=== PATIENT | female | born 1950 | race Caucasian/White ===

== ENCOUNTER 2018-12-15 23:57 | Emergency (ER) | payer MEDICARE, OTHER ==
--- NOTE | 2018-12-16 02:58 | RADIOLOGY REPORT (SQ) ---
EXAM DESCRIPTION: XR KNEE 3 VIEWS COMPLETED DATE/TME: 12/16/2018 01:49 CLINICAL HISTORY: 68 years, Female, pain COMPARISON: None. NUMBER OF VIEWS: Three TECHNIQUE: Three views of the left knee LIMITATIONS: None. FINDINGS: There is no acute fracture or dislocation. There is medial compartment joint space narrowing with subchondral sclerosis. No radiopaque foreign body. No joint effusion. IMPRESSION: No acute fracture or dislocation copyright 2010 [employer]- All Rights Reserved
--- NOTE | 2018-12-16 03:08 | ER Document Report ---
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 Patient states the pain started gradually, has been worsening since onset, is a throbbing, aching, constant pain. Walking or bending the knee worsens the pain. She has tried topical lidocaine with no relief. States that she saw her primary care doctor, had an x-ray and was told that it was worsening osteoarthritis. She came to the emergency department tonight stating the pain was making it difficult for her to sleep. Nothing is otherwise new or different regarding the pain tonight versus the past 2 weeks. Has not had fever or constitutional symptoms. Has not noted any increased swelling to the area. States this is not feeling when she had a DVT in the past. No direct injury to the knee. TRAVEL OUTSIDE OF THE [place] IN LAST 30 DAYS: No - Related Data Allergies/Adverse Reactions: aspirin [From Percodan] Allergy (Verified 12/16/18 00:05) oxycodone [From Percodan] Allergy (Verified 12/16/18 00:05) propoxyphene [From Darvon] Allergy (Verified 12/16/18 00:05) smallpox vaccine,live Allergy (Verified 12/16/18 00:05) Sulfa (Sulfonamide Antibiotics) Allergy (Verified 12/16/18 00:05) Past Medical History - General Information source: Patient - Social History Smoking Status: Never Smoker Frequency of alcohol use: None Drug Abuse: None Lives with: Spouse/Significant other Family History: Reviewed & Not Pertinent Patient has suicidal ideation: No Patient has homicidal ideation: No Renal/ Medical History: Denies: Hx Peritoneal Dialysis Review of Systems - Review of Systems Notes: Constitutional: Negative for fever. HENT: Negative for sore throat. Eyes: Negative for visual changes. Cardiovascular: Negative for chest pain. Respiratory: Negative for shortness of breath. Gastrointestinal: Negative for abdominal pain, vomiting or diarrhea. Genitourinary: Negative for dysuria. Musculoskeletal: Positive for left knee pain Skin: Negative for rash. Neurological: Negative for headaches, weakness or numbness. 10 point ROS negative except as marked above and in HPI. Physical Exam - Vital signs Vitals: Temp Pulse Resp BP Pulse Ox 97.8 F 81 22 H 134/84 H 95 12/16/18 00:03 12/16/18 00:03 12/16/18 00:03 12/16/18 00:03 12/16/18 00:03 Interpretation: Normal Notes: PHYSICAL EXAMINATION: GENERAL: Well-appearing, well-nourished and in no acute distress. HEAD: Atraumatic, normocephalic. EYES: sclera anicteric, conjunctiva are normal. ENT: Moist mucous membranes. NECK: Normal range of motion LUNGS: Normal work of breathing HEART: 2+ DP pulses bilaterally. 2+ popliteal pulses bilaterally EXTREMITIES: no pitting or edema. Full flexion extension at the left knee including to 90 degrees on the left knee. No erythema or warmth to the left knee. No cyanosis. NEUROLOGICAL: No focal neurological deficits. Moves all extremities spontaneously and on command. PSYCH: Moderately anxious SKIN: Warm, Dry, normal turgor, no rashes or lesions noted. Course - Re-evaluation Re-evalutation: 12/16/18 02:59 No evidence of a septic joint, gout flare, dislocation, or fracture on exam and imaging. Patient is able to bend the knee to 90 degrees. Joint is not hot, do not clinically suspect a septic joint indicate need for arthrocentesis. Patient has a history of DVT in the right lower extremity but is currently anticoagulant on Xarelto reducing the probability significantly of a DVT in the leg. Moreover clinical symptomology is not consistent with this. There is no increased size in the leg, no pain over the popliteal fossa, no pain in the thigh itself. She has strong 2+ DP pulses bilaterally. I did discuss that an ultrasound is unable to be obtained at this hour in the emergency department and have advised outpatient follow-up for an ultrasound to definitively exclude this diagnosis should her symptoms persist. Vitals wnl. At this time, I do not see an indication for labs or further imaging. At this time will discharge with return precautions and follow-up recommendations. Verbal discharge instructions given a the bedside and opportunity for questions given. Medication warnings reviewed. Patient is in agreement with this plan and has verbalized understanding of return precautions and the need for primary care follow-up in the next 24-72 hours. - Vital Signs Vital signs: Temp Pulse Resp BP Pulse Ox 97.8 F 81 22 H 134/84 H 95 12/16/18 00:03 12/16/18 00:03 12/16/18 00:03 12/16/18 00:03 12/16/18 00:03 - Diagnostic Test Radiology reviewed: Image reviewed, Reports reviewed Radiology results interpreted by me: 12/16/18 03:00 Left knee x-ray: No acute fracture or dislocation Discharge - Discharge Clinical Impression: Left knee pain Qualifiers: Chronicity: acute Qualified Code(s): M25.562 - Pain in left knee Condition: Good Disposition: HOME, SELF-CARE Additional Instructions: Your x-ray does not show any acute fracture today. Your symptoms may be due to worsening of the underlying osteoarthritis. For your pain: Take acetaminophen 1000 mg every 6 hours together as needed for pain. You can use the topical Voltaren gel as prescribed. Continue to apply ice to the area is much your able. Please follow-up with your primary care physician if you do not have improving your symptoms in the next 1-2 weeks. Please return immediately if you develop weakness, numbness, spreading redness from the area, or any other symptoms that are concerning to you. As we discussed, the likelihood of a blood clot in your leg being that you already anticoagulated on Xarelto is low. He also denies clinical signs to suggest this diagnosis at this time. However if your symptoms do persist an ultrasound of your leg would be reasonable to obtain within the next 24-48 hours. Prescriptions: Diclofenac Sodium [Voltaren] 100 gm TP TID PRN #[id number] gel..gm. PRN Reason: Referrals: ALEX TRUJILLO MD [Primary Care Provider] - Follow up as needed
[2018-12-16] MEDS ORDERED: TRAMADOL HCL 50 MG TABLET PO ONE (03:13)
[2018-12-16] MEDS ORDERED: ACETAMINOPHEN 325 MG TABLET PO ONE (03:13)
[2018-12-16 03:58] VITALS: BP 131/86
== END 2018-12-16 03:50 | disposition home or self-care (01) ==
LOC: ER 23:57
DX: M25.562 Pain in left knee (principal); M25.561 Pain in right knee; Z86.718 Personal history of other venous thrombosis and embolism; Z79.01 Long term (current) use of anticoagulants; Z88.6 Allergy status to analgesic agent; Z88.2 Allergy status to sulfonamides
CPT/HCPCS: 99283; 73562; A9270 ×2

== ENCOUNTER 2019-01-28 13:48 | Emergency (ER) | payer MEDICARE, OTHER ==
--- NOTE | 2019-01-28 14:31 | ER Document Report ---
ED Medical Screen (RME) - General Chief Complaint: Burn Stated Complaint: RIGHT LEG BURN Time Seen by Provider: 01/28/19 14:23 Primary Care Provider: ARMANI RIVERA DO [Primary Care Provider] - Follow up as needed TRAVEL OUTSIDE OF THE [place] IN LAST 30 DAYS: No - HPI Notes: 01/28/19 14:29 Patient is a 68-year-old female with a history of previous DVTs for right lower extremity no longer on any anticoagulation who presents complaining of a burn to her right anterior lower leg from ultraviolet machine that she is using to try to improve her circulation. Patient is unsure if she actually touched herself the machine or not. Patient states that this occurred 5 days ago. She is also noticed increase in leg swelling from her normal and some mild redness. No other concerns or complaints. Denies GORDON, fever, neck pain, URI, CP, SOB, Abd pain. I have treated and performed a rapid initial assessment of this patient. A comprehensive ED assessment and evaluation of the patient, analysis of test results and completion of medical decision making process will be conducted by additional ED providers. PHYSICAL EXAMINATION: GENERAL: Well-appearing, well-nourished and in no acute distress. A&Ox4. Answers questions appropriately. Extremities: 3+ pitting edema RLE. 2+ LLE. + mild erythema and weeping noted from wound(s) anterior lower rt leg. - Related Data Allergies/Adverse Reactions: aspirin [From Percodan] Allergy (Verified 01/28/19 14:04) oxycodone [From Percodan] Allergy (Verified 01/28/19 14:04) propoxyphene [From Darvon] Allergy (Verified 01/28/19 14:04) smallpox vaccine,live Allergy (Verified 01/28/19 14:04) Sulfa (Sulfonamide Antibiotics) Allergy (Verified 01/28/19 14:04) Past Medical History Renal/ Medical History: Denies: Hx Peritoneal Dialysis Physical Exam - Vital signs Vitals: Temp Pulse Resp BP Pulse Ox 98 F 89 16 154/114 H 96 01/28/19 14:06 01/28/19 14:06 01/28/19 14:06 01/28/19 14:06 01/28/19 14:06 Course - Vital Signs Vital signs: Temp Pulse Resp BP Pulse Ox 98 F 89 16 154/114 H 96 01/28/19 14:06 01/28/19 14:06 01/28/19 14:06 01/28/19 14:06 01/28/19 14:06 Doctor's Discharge - Discharge Referrals: ARMANI RIVERA DO [Primary Care Provider] - Follow up as needed
[2019-01-28] MEDS ORDERED: DOXYCYCLINE HYCLATE 100 MG TABLET PO ONE (17:57)
[2019-01-28] MEDS ORDERED: CEFTRIAXONE INJ 1000 MG VIAL IM ONE (17:59)
[2019-01-28] MEDS ORDERED: LIDOCAINE 1% INJ (10 MG/ML) 10 ML MDV INJ ONE ×2 (18:00→18:03)
--- NOTE | 2019-01-28 18:06 | ER Document Report ---
ED Burn/Smoke/Toxic Fumes - General Chief Complaint: Burn Stated Complaint: RIGHT LEG BURN Time Seen by Provider: 01/28/19 14:23 Primary Care Provider: ARMANI RIVERA DO [Primary Care Provider] - Follow up as needed Notes: Patient is concerned she may have an infection in her right lower leg. She has been using a wrap device that a friend left her. She applies this around her knee area and above and it applies some heat by UV light and supposed to relieve her knee pain. On Tuesday, 5 days ago, patient noticed that the wrapping device must of touch her right lower leg and it caused a small burn which has been oozing, but it stopped after a day or so and then returned last night. It is now oozing clear fluid but the soft tissues adjacent to it are pink and warm. Patient has not had any fever. Has not had any difficulty breathing or shortness of breath. Patient has been applying a silver-based antibiotic that her friend recommended, as well. Patient is very concerned because she is scheduled to have a procedure done on the left knee Tuesday. It is called a geniculate procedure. Patient says she cannot have the procedure done if she has any signs of infection anywhere. Patient has factor V Leiden clotting disorder. She has had 3 deep venous thromboses in the right lower leg. TRAVEL OUTSIDE OF THE [place] IN LAST 30 DAYS: No - Related Data Allergies/Adverse Reactions: aspirin [From Percodan] Allergy (Verified 01/28/19 14:04) oxycodone [From Percodan] Allergy (Verified 01/28/19 14:04) propoxyphene [From Darvon] Allergy (Verified 01/28/19 14:04) smallpox vaccine,live Allergy (Verified 01/28/19 14:04) Sulfa (Sulfonamide Antibiotics) Allergy (Verified 01/28/19 14:04) Past Medical History - Social History Smoking Status: Never Smoker Frequency of alcohol use: None Drug Abuse: None Family History: Reviewed & Not Pertinent Patient has suicidal ideation: No Patient has homicidal ideation: No - Past Medical History Cardiac Medical History: Reports: Hx Hypertension Psychiatric Medical History: Reports: Hx Attention Deficit Hyperactivity Disorder, Hx Depression - anxiety Past Surgical History: Reports: Hx Abdominal Surgery - bariatic, Hx Appendectomy, Hx Gastric Bypass Surgery Review of Systems - Review of Systems Notes: REVIEW OF SYSTEMS: CONSTITUTIONAL : Denies fever. EENT: Denies eye, ear, nose or mouth or throat pain or other symptoms. CARDIOVASCULAR: Denies chest pain. RESPIRATORY: Denies cough, chest congestion, or shortness of breath. GASTROINTESTINAL: Denies abdominal pain or nausea, vomiting, or diarrhea. GENITOURINARY: Denies difficulty or painful urinating, urinary frequency, blood in urine. MUSCULOSKELETAL: Denies back or neck pain. Denies joint pain or swelling. SKIN: See HPI. NEUROLOGICAL: Denies LOC or altered mental status. Denies headache. Denies sensory loss or motor deficits. ALL OTHER SYSTEMS REVIEWED AND NEGATIVE. Physical Exam - Vital signs Vitals: Temp Pulse Resp BP Pulse Ox 98 F 89 16 154/114 H 96 01/28/19 14:06 01/28/19 14:06 01/28/19 14:06 01/28/19 14:06 01/28/19 14:06 Interpretation: Normal, Hypertensive. No: Febrile Notes: PHYSICAL EXAMINATION: GENERAL: Well-appearing, in no acute distress. HEAD: Atraumatic, normocephalic. EYES: Pupils equal round and reactive to light, extraocular movements intact. ENT: oropharynx clear without exudates. Moist mucous membranes. NECK: Normal range of motion, supple. LUNGS: Breath sounds clear and equal bilaterally. HEART: Regular rate and rhythm without murmurs. ABDOMEN: Soft, nontender. No guarding or rebound. No masses. BACK: No tenderness throughout entire back. EXTREMITIES: Normal range of motion without pain. Right lower leg has diffuse edema which is enough to reduce a notable difference between the 2 lower legs. There is a pink hue to the anterior aspect of the right lower leg. About midway down the anterior aspect of the right lower leg there are 2-3 small spots where the skin appears to be broken and a clear fluid is oozing out. No purulent drainage noted anywhere. No fluctuance present. NEUROLOGICAL: Normal speech, uses a walker. Normal sensory, motor, and reflex exams. Awake, alert, and oriented x3. Cranial nerves normal. PSYCH: Normal mood, normal affect. SKIN: Warm, dry, no rashes. Course - Vital Signs Vital signs: Temp Pulse Resp BP Pulse Ox 97.9 F 87 18 117/89 H 100 01/28/19 18:31 01/28/19 18:31 01/28/19 18:31 01/28/19 18:31 01/28/19 18:31 Discharge - Discharge Clinical Impression: Burn of right lower leg, Cellulitis of right lower leg Condition: Stable Disposition: HOME, SELF-CARE Additional Instructions: Hazel The seriousness of a burn is not always obvious at first. Delayed tissue damage and secondary infection may occur despite proper treatment. Proper care is very important. A burn that is third-degree may need skin grafting. Most hazel, however, are simply protected with dressings until healed. Keep the burn clean. If the dressing gets wet, remove it and blot the wound dry, then apply a fresh dressing. Dressings should be changed at least once daily. Soaks to remove crusting are usually started in about two days. Hazel in certain areas require stretching to prevent disabling tightness. Your doctor will advise you about this. For pain control, you may frequently apply a hand towel that has been dipped in water with ice cubes. Do not apply ice directly to the burned areas. If any signs of infection occur (swelling, redness, increasing tenderness, red streaks, tender lumps in the armpit or groin above the burn, or fever), contact the doctor immediately. MRSA CELLULITIS: You have an infection of your skin and underlying soft tissues called cellulitis. This is due to bacteria, which can enter through any break in the s kin, or even through an irritated hair follicle. Untreated, cellulitis will usually worsen and may form an abscess which requires draining. Although many bacterial organisms can cause cellulitis and abscess formations, the most likely bacteria is Methicillin-Resistant Staph Aureus, or MRSA for short. Antibiotics are required. Usually, warm packs or warm soaks, and elevation of the infected area are recommended. You should start getting better within 24 to 36 hours. Most infections respond quickly to the right medication. Follow-up care is important, however, to check for abscess (boil) formation, unsuspected foreign body, or resistant infection. If you develop fever, chills, or if the area of infection is becoming rapidly more swollen or painful, call the doctor at once. ANTIBIOTIC THERAPY: You have been given an antibiotic prescription. It's important that you take all the medication, unless instructed otherwise by your physician. Failure to complete the entire course can result in relapse of your condition. Common side effects of antibiotics include nausea, intestinal cramping, or diarrhea. Women may develop vaginal yeast infections, and babies can get yeast (thrush) in the mouth following the use of antibiotics. Contact your physician if you develop significant side effects from this medication. Allergy to this antibiotic can result in hives, wheezing, faintness, or itching. If symptoms of allergy occur, stop the medication and call the doctor. DOXYCYCLINE: Doxycycline (Vibramycin, Doryx) is an antibiotic of the tetracycline family. This type of drug is useful for infections of the respiratory tract and genital tract, and is sometimes used for intestinal infections. Unlike most tetracyclines, doxycycline can be taken with food. It is longer acting, and (usually) less prone to side effects than regular tetracycline. Tetracycline antibiotics can stain immature teeth and SHOULD NOT BE TAKEN BY CHILDREN, NURSING MOTHERS, OR WOMEN. Tetracyclines can make you more prone to sunburn. Abdominal cramping, nausea, and diarrhea are occasional side effects. Women may experience vaginal yeast infections. Call the doctor at once if you develop hives, itching, shortness of breath, or lightheadedness. Rocephin You have been given an injection of an antibiotic called Rocephin (ceftriaxone). Sometimes the injection must be combined with antibiotic pills. For some infections, such as an uncomplicated ear infection, Rocephin provides all the antibiotic that's needed. The antibiotic will be in your body for about two days. For serious infections, we usually repeat doses of Rocephin daily. Side effects are very unusual following a shot. Women may develop vaginal yeast infections, and babies can get yeast (thrush) in the mouth following the use of antibiotics. Contact your physician if you have symptoms with this medication. Allergy to this antibiotic can result in hives, wheezing, faintness, or itching. If symptoms of allergy occur, call the doctor at once. Cephalexin The antibiotic you've been prescribed is a member of the cephalosporin class. This type of antibiotic covers a wide variety of infections, including those of the skin, lungs, and urinary tract. It's useful for staph infections. This antibiotic is slightly similar to the penicillin family. In rare cases, a person who is allergic to penicillin will also be allergic to this medication. If you have had a severe allergic reaction to penicillin, and have not taken this antibiotic since that time, notify your doctor. Antibiotics which cover many germs ("broad spectrum" antibiotics) are more likely to cause diarrhea or "yeast" infections. Women prone to vaginal yeast problems may suffer an attack after taking this antibiotic. In infants, oral thrush (white spots "stuck" on the cheek) or yeast diaper rash may result. See your doctor if these problems occur. Call at once if you develop itching, hives, shortness of breath, or lightheadedness. FOLLOW-UP CARE: If you have been referred to a physician for follow-up care, call the physicians office for an appointment as you were instructed or within the next two days. If you experience worsening or a significant change in your symptoms, notify the physician immediately or return to the Emergency Department at any time for re-evaluation. Prescriptions: Cephalexin [Cephalexin 250 MG Tablet] 250 mg PO QID #30 tablet Doxycycline Hyclate 100 mg PO BID #14 capsule Referrals: ARMANI RIVERA, [Primary Care Provider] - Follow up as needed
--- NOTE | 2019-01-28 18:21 | RADIOLOGY REPORT (SQ) ---
EXAM DESCRIPTION: VENOUS UNILATERAL LOWER COMPLETED DATE/TIME: 01/28/2019 6:11 pm REASON FOR STUDY: RLE swelling more than normal COMPARISON: None. TECHNIQUE: Dynamic and static stallworth scale and color images acquired of the right leg venous system. S elected spectral images acquired with additional compression and augmentation maneuvers. The contrala teral common femoral vein and saphenofemoral junction were also imaged. Images stored on PACS. LIMITATIONS: None. FINDINGS: COMMON FEMORAL: Normal phasicity, compression and augmentation. No visualized echogenic ma terial on stallworth scale. No defects on color images. FEMORAL: Normal compression and augmentation. No visualized echogenic material on stallworth scale. No defe cts on color images. POPLITEAL: Normal compression, augmentation. No visualized echogenic material on stallworth scale. No defec ts on color images. CALF VESSELS: Normal compression, augmentation. No visualized echogenic material on stallworth scale. No de fects on color images. GSV and SSV: Normal compression, augmentation. No visualized echogenic material on stallworth scale. No def ects on color images. ANY DEEP VENOUS INSUFFICIENCY: Not evaluated. ANY EVIDENCE OF POPLITEAL CYST: No. OTHER: No other significant finding. CONTRALATERAL COMMON FEMORAL VEIN AND SAPHENOFEMORAL JUNCTION: Normal phasicity, compression and augmentation. No visualized echogenic material on stallworth scale. No de fects on color images. IMPRESSION: NO EVIDENCE OF DVT OR SVT IN THE RIGHT LEG. TECHNICAL DOCUMENTATION: JOB ID: [id number] [employer]- All Rights Reserved Reading location - IP/workstation name: [email or web address]
[2019-01-28 18:33] VITALS: BP 117/89
== END 2019-01-28 18:55 | disposition home or self-care (01) ==
LOC: ER 13:48
DX: L03.115 Cellulitis of right lower limb (principal); T24.001A Burn of unspecified degree of unspecified site of right lower limb, except ankle and foot, initial encounter; X08.8XXA Exposure to other specified smoke, fire and flames, initial encounter; Z88.6 Allergy status to analgesic agent; D68.51 Activated protein C resistance; Z86.718 Personal history of other venous thrombosis and embolism; I10 Essential (primary) hypertension; Z98.84 Bariatric surgery status; Z88.2 Allergy status to sulfonamides
CPT/HCPCS: 99283; 96372; 87070; 87205; 87077; 87186; 93971; A9270; J0696

== ENCOUNTER 2019-05-13 19:06 | Inpatient (IN) | payer MEDICARE, OTHER ==
--- NOTE | 2019-05-13 19:44 | ER Document Report ---
Entered by YARY BOOTH SCRIBE 05/13/191930 Acting as scribe for:BRODY PADILLA MD ED General - General Stated Complaint: WEAKNESS Time Seen by Provider: 05/13/19 19:20 Information source: Patient Notes: Patient is a 69-year-old female who presents to the emergency department today with complaints of weakness for the last x1-2 weeks. Patient states her reason for coming in now is that her son stopped by and saw her for the first time since her weakness began. Patient states she has had difficulty with ambulation secondary to bilateral leg weakness. Patient states her right arm is also weak. On the EMS report, it states that the patient has stopped taking her medications. Patient does endorse missing some medications, stating she "just forgot to take them". The patient is on Xarelto for factor V Leiden. The patient is not a TPA candidate. She takes Xarelto. Her symptoms have been going on for several days. There is minimal if any motor deficit noted on exam. TRAVEL OUTSIDE OF THE [place] IN LAST 30 DAYS: No - Related Data Allergies/Adverse Reactions: aspirin [From Percodan] Allergy (Verified 05/14/19 03:48) oxycodone [From Percodan] Allergy (Verified 05/14/19 03:48) propoxyphene [From Darvon] Allergy (Verified 05/14/19 03:48) smallpox vaccine,live Allergy (Verified 05/14/19 03:48) Sulfa (Sulfonamide Antibiotics) Allergy (Verified 05/14/19 03:48) Past Medical History - General Information source: Patient, [facility] Records - Social History Smoking Status: Never Smoker Cigarette use (# per day): No Frequency of alcohol use: None Drug Abuse: None Lives with: Family Family History: Reviewed & Not Pertinent - Past Medical History Cardiac Medical History: Reports: Hx Hypertension Psychiatric Medical History: Reports: Hx Attention Deficit Hyperactivity Disorder, Hx Depression Past Surgical History: Reports: Hx Appendectomy, Hx Gastric Bypass Surgery Review of Systems - Review of Systems Constitutional: See HPI, Weakness - difficuly with ambulation, not taking medications EENT: No symptoms reported Cardiovascular: No symptoms reported Respiratory: No symptoms reported Gastrointestinal: No symptoms reported Genitourinary: No symptoms reported Female Genitourinary: No symptoms reported Musculoskeletal: No symptoms reported Skin: No symptoms reported Hematologic/Lymphatic: No symptoms reported Neurological/Psychological: No symptoms reported -: Yes All other systems reviewed and negative Physical Exam - Vital signs Vitals: Temp Pulse Resp BP 98.3 F 94 19 130/103 H 05/13/19 19:06 05/13/19 19:06 05/13/19 19:06 05/13/19 19:06 - Notes Notes: Physical Exam: General: Talks very softly, appears depressed. HEENT: Normocephalic. Atraumatic. PERRL. Extraocular movements intact. Oropharynx clear. Neck: Supple. Non-tender. Respiratory: No respiratory distress. Clear and equal breath sounds bilaterally. Cardiovascular: Regular rate and rhythm. Abdominal: Normal Inspection. Non-tender. No distension. Normal Bowel Sounds. Back: No gross abnormalities. Extremities: Moves all four extremities. Upper extremities: Normal inspection. Normal ROM. 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 Lower extremities: Normal inspection. No edema. Normal ROM. Able to dorsi and plantar flex both feet. Both seem a little weak, left more so than right. Neurological: Normal cognition. AAOx4. Normal speech. No facial asymmetry. Psychological: Appears depressed. Flat affect. Skin: Warm. Dry. Normal color. Course - Vital Signs Vital signs: Temp Pulse Resp BP Pulse Ox 98.7 F 94 14 136/83 H 98 05/14/19 03:01 05/13/19 19:06 05/14/19 03:01 05/14/19 03:01 05/14/19 03:01 - Laboratory Result Diagrams: 05/13/19 20:00 05/13/19 20:00 Laboratory results interpreted by me: 05/13/19 05/13/19 05/13/19 20:00 20:00 22:45 Plt Count 146 L Lymph % (Auto) 11.0 L BUN 24 H Creatinine 1.29 H Est GFR ( Amer) 50 L Est GFR (MDRD) Non-Af 41 L Creatine Kinase < 20 L Total Protein 5.9 L Albumin 3.4 L Ur Leukocyte Esterase MODERATE H Urine Ascorbic Acid 40 H - Diagnostic Test Radiology reviewed: Image reviewed, Reports reviewed - CT scan of the head is unremarkable. - EKG Interpretation by Me EKG shows normal: Sinus rhythm, Fulda, Intervals, QRS Complexes, ST-T Waves Rate: Normal - 93 Rhythm: NSR Fulda/QRS: RBBB - Incomplete right bundle branch block P Waves: LAE - Consults Dr. Samuel Time consulted: 01:22 Consulted provider: will come to ER Discharge - Discharge Clinical Impression: Weakness Urinary tract infection Qualifiers: Urinary tract infection type: site unspecified Hematuria presence: with hematuria Qualified Code(s): N39.0 - Urinary tract infection, site not specified Condition: Stable Disposition: ADMITTED INPATIENT Admitting Provider: Jimmie (Hospitalist) Unit Admitted: Medical Floor Scribe Attestation: 05/13/19 19:43 I personally performed the services described in the documentation, reviewed and edited the documentation which was dictated to the scribe in my presence, and it accurately records my words and actions. I personally performed the services described in the documentation, reviewed and edited the documentation which was dictated to the scribe in my presence, and it accurately records my words and actions.
[2019-05-13 21:02] LABS: ABSOLUTE LYMPHOCYTES (AUTO) 0.7 10^3/uL (0.5-4.7); ABSOLUTE MONOCYTES (AUTO) 0.7 10^3/uL (0.1-1.4); ABSOLUTE NEUT (AUTO) 5.2 10^3/uL (1.7-8.2); BASOPHILS % (AUTO) 0.3 % (0-2); EOSINOPHILS % (AUTO) 0.2 % (0-6); HEMATOCRIT 38.9 % (36.0-47.0); HEMOGLOBIN 13.1 g/dL (12.0-15.5); MEAN CORPUSCULAR HEMOGLOBIN 27.6 pg (27.0-33.4); MEAN CORPUSCULAR HGB CONC 33.7 g/dL (32.0-36.0); MEAN CORPUSCULAR VOLUME 82 fl (80-97); PLATELET COUNT 146 10^3/uL (150-450); RED BLOOD COUNT 4.75 10^6/uL (3.72-5.28); RED CELL DISTRIBUTION WIDTH 13.8 % (11.5-14.0); SEGMENTED NEUTROPHILS % (AUTO) 77.5 % (42-78); TOTAL CELLS COUNTED % (AUTO) 100 %; WHITE BLOOD COUNT 6.7 10^3/uL (4.0-10.5)
[2019-05-13 21:27] LABS: ALBUMIN 3.4 g/dL (3.5-5.0); ALKALINE PHOSPHATASE 94 U/L (38-126); ANION GAP 9 (5-19); ASPARTATE AMINO TRANSFERASE 14 U/L (14-36); BILIRUBIN,DIRECT 0.4 mg/dL (0.0-0.4); BILIRUBIN,TOTAL 0.4 mg/dL (0.2-1.3); BLOOD UREA NITROGEN 24 mg/dL (7-20); CALCIUM 9.2 mg/dL (8.4-10.2); CARBON DIOXIDE 27 mmol/L (22-30); CHLORIDE 102 mmol/L (98-107); CREATINE KINASE < 20 U/L (30-135); GLUCOSE 94 mg/dL (75-110); POTASSIUM 3.7 mmol/L (3.6-5.0); TOTAL PROTEIN 5.9 g/dL (6.3-8.2)
--- NOTE | 2019-05-13 21:44 | EKG REPORT ---
SEVERITY:- ABNORMAL ECG - SINUS RHYTHM PROBABLE LEFT ATRIAL ABNORMALITY INCOMPLETE RIGHT BUNDLE BRANCH BLOCK : Confirmed by: Helio Clark 13-May-2019 21:43:32
--- NOTE | 2019-05-13 22:20 | RADIOLOGY REPORT (SQ) ---
EXAM DESCRIPTION: CT HEAD WITHOUT IV CONTRAST COMPLETED DATE/TME: 05/13/2019 20:55 CLINICAL HISTORY: 69 years Female Right sided weakness COMPARISON: None. TECHNIQUE: Contiguous axial CT images obtained through the brain without IV contrast. This exam was performed according to our department optimization program which includes automated exposure control, adjustment of the mA and/or kv according to patient size and/or use of iterative reconstruction technique. FINDINGS: The ventricles and sulci are within normal limits for the patient's age. No midline shift or mass effect. No masses identified. No acute intracranial hemorrhage. No fluid or significant mucosal thickening in the visualized paranasal sinuses. No depressed calvarial fractures. IMPRESSION: No acute intracranial abnormality is identified.
[2019-05-13 23:08] LABS: APPEARANCE,URINE SLIGHTLY-CLOUDY; BILIRUBIN,URINE NEGATIVE (NEGATIVE); COLOR,URINE YELLOW; GLUCOSE, URINE NEGATIVE (NEGATIVE); KETONES,URINE NEGATIVE (NEGATIVE); LEUKOCYTE ESTERASE,URINE MODERATE (NEGATIVE); NITRITE,URINE NEGATIVE (NEGATIVE); PROTEIN,URINE NEGATIVE (NEGATIVE); URINE SPECIFIC GRAVITY 1.016; UROBILINOGEN,URINE NEGATIVE mg/dL (<2.0)
[2019-05-13] MEDS ORDERED: CEFTRIAXONE 1 GM/D5W RTU 1 GM/50 ML RTUPB IV ONE (23:38)
[2019-05-14] MEDS ORDERED: TEMAZEPAM 15 MG CAPSULE PO PRN (03:40)
[2019-05-14] MEDS ORDERED: MAG HYDROX/AL HYDROX/SIMETH SUSP 30 ML UDCUP PO PRN (03:40)
[2019-05-14] MEDS ORDERED: ONDANSETRON 4 MG TAB.RAPDIS PO PRN (03:40)
[2019-05-14] MEDS ORDERED: ONDANSETRON HCL INJ/PF 4 MG/2 ML SDV IV PRN (03:40)
[2019-05-14] MEDS ORDERED: MAGNESIUM HYDROXIDE SUSP 30 ML UDCUP PO PRN (03:40)
--- NOTE | 2019-05-14 05:06 | PDOC H&P ---
History of Present Illness Admission Date/PCP: 05/14/19 01:41 ARMANI RIVERA DO Patient complains of: Weakness History of Present Illness: PETER PINK is a 69 year old female who presented to the emergency room with a 2-week history of weakness. Patient admitted a slowly progressive ge neralized weakness over the last 2 weeks becoming severe today preventing her ability to ambulate due to bilateral leg weakness with the left being weaker than the right. She also complains of intermittent weakness in her right arm. She denies other associated or accompanying signs or symptoms. She denies prior similar episodes. She has not identified any aggravating or ameliorating factors for her weakness. In the emergency room the patient seemed to be somewhat confused at the time of evaluation as she varied her complaints and gave inconsistent statements. When it was pointed out that EMS reported she had not been taking her medications she quickly stated that she just forgot to take them. A CT scan of her head was negative for acute changes. Patient was found to have mild pyuria and was subsequently admitted to the hospital for further evaluation and treatment. 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, Nose - Allergic rhinitis Denies: Cataracts, Ears - Hearing aids Neurological Medical History: Denies: Hemorrhagic CVA, Ischemic CVA, Seizures Endocrine Medical History: Reports: Obesity Denies: Diabetes Mellitus Type 1, Diabetes Mellitus Type 2, Hyperthyroidism, Hypothyroidism Renal/ Medical History: Denies: Chronic Kidney Disease, Nephrolithiasis Malignancy Medical History: Reports: None GI Medical History: Denies: Cirrhosis, Crohn's Disease, Hepatitis, Ulcerative Colitis Musculoskeltal Medical History: Reports: Arthritis - Left knee Denies: Gout Skin Medical History: Denies: Eczema, Psoriasis Psychiatric Medical History: Reports: Attention Deficit Hyperactivity Disorder, Depression, General Anxiety Disorder Denies: Alcohol Dependency, Substance Abuse, Tobacco Dependency Traumatic Medical History: Reports: None Hematology: Reports: Other - Factor V Leiden disorder Denies: Anemia, Bleeding Tendencies Infectious Medical History: Reports: None Past Surgical History Past Surgical History: 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 Past Surgical History: Reports: Appendectomy, Gastric Bypass Surgery, Vascular Surgery - Inferior vena cava filter, Other - Ectopic surgery, ovarian cystectomy, oophorectomy, bladder tack. Social History Information Source: Patient Lives with: Alone Smoking Status: Never Smoker Frequency of Alcohol Use: None Hx Recreational Drug Use: No Drugs: None Hx Prescription Drug Abuse: No - Advance Directive Resuscitation Status: Full Code Surrogate healthcare decision maker:: Juan Pink Family History Family History: CAD, DM, Hypertension, Malignancy Parental Family History Reviewed: Yes Children Family History Reviewed: No Sibling(s) Family History Reviewed.: Yes Medication/Allergy Home Medications: Diclofenac Sodium [Voltaren] 100 gm TP TID PRN #100 gel..gm. 12/16/18 Cephalexin [Cephalexin 250 MG Tablet] 250 mg PO QID #30 tablet 01/28/19 Doxycycline Hyclate 100 mg PO BID #14 capsule 01/28/19 Allergies/Adverse Reactions: aspirin [From Percodan] Allergy (Verified 05/14/19 03:48) oxycodone [From Percodan] Allergy (Verified 05/14/19 03:48) propoxyphene [From Darvon] Allergy (Verified 05/14/19 03:48) smallpox vaccine,live Allergy (Verified 05/14/19 03:48) Sulfa (Sulfonamide Antibiotics) Allergy (Verified 05/14/19 03:48) Review of Systems Constitutional: PRESENT: as per HPI, weakness. ABSENT: chills, fever(s) Eyes: ABSENT: visual disturbances, other - Eye pain Ears: ABSENT: hearing changes, other - Ear pain Nose, Mouth, and Throat: ABSENT: mouth pain, sore throat Cardiovascular: ABSENT: chest pain, palpitations Respiratory: ABSENT: cough, dyspnea Gastrointestinal: ABSENT: abdominal pain, constipation, diarrhea, nausea, vomiting Genitourinary: ABSENT: dysuria, hematuria Integumentary: ABSENT: pruritus, rash Neurological: PRESENT: as per HPI, abnormal gait - Due to bilateral lower extremity weakness left greater than right, confusion - Has noted worsening confusion over the last several months, memory loss - Has noted worsening memory loss over an extended period of months., weakness. ABSENT: convulsions, focal weakness, syncope Psychiatric: PRESENT: other - Has been under a lot of stress due to quitting her job, evicting 1 of her sons from her home, preparing to move to a smaller home and experiencing numerous negative changes in her memory and mental functioning over the last several months. Today is also the anniversary of her son's 2 years ago and is also noted her approximately 3 years ago.. A BSENT: anxiety, depression Endocrine: ABSENT: cold intolerance, heat intolerance Hematologic/Lymphatic: ABSENT: easy bleeding, easy bruising Allergic/Immunologic: ABSENT: seasonal rhinorrhea Physical Exam Vital Signs: Temp Pulse Resp BP Pulse Ox 98.3 F 94 17 134/90 H 99 05/13/19 19:06 05/13/19 19:06 05/13/19 23:01 05/13/19 23:01 05/13/19 23:01 Intake & Output 05/12/19 05/13/19 05/14/19 23:59 23:59 23:59 Intake Total 50 Balance 50 Weight 78.471 kg General appearance: PRESENT: no acute distress, cooperative Head exam: PRESENT: atraumatic, normocephalic Eye exam: PRESENT: conjunctiva pink. ABSENT: conjunctival injection, scleral ic terus Ear exam: PRESENT: normal external ear exam. ABSENT: bleeding, drainage Mouth exam: PRESENT: dry mucosa, neck supple Neck exam: ABSENT: thyromegaly, tracheal deviation Respiratory exam: PRESENT: clear to auscultation vaughn, symmetrical, unlabored Cardiovascular exam: PRESENT: RRR. ABSENT: clicks, gallop, rubs Pulses: PRESENT: normal radial pulses, normal dorsalis pedis pul Vascular exam: PRESENT: normal capillary refill. ABSENT: pallor GI/Abdominal exam: PRESENT: normal bowel sounds, soft Rectal exam: PRESENT: deferred Extremities exam: ABSENT: joint swelling, pedal edema Musculoskeletal exam: PRESENT: full ROM, normal inspection Neurological exam: PRESENT: alert, oriented to person, oriented to place, oriented to time, oriented to situation, reflexes normal, CN II-XII grossly intact. ABSENT: motor sensory deficit - Muscle strength appeared to be normal and equal bilaterally in both upper and lower extremities on gross evaluation. Psychiatric exam: PRESENT: depressed, flat affect Skin exam: PRESENT: dry, intact, warm. ABSENT: jaundice, rash, urticaria Results Laboratory Results: 05/13/19 20:00 05/13/19 20:00 05/13/19 05/13/19 05/13/19 20:00 20:00 22:45 WBC 6.7 RBC 4.75 Hgb 13.1 Hct 38.9 MCV 82 MCH 27.6 MCHC 33.7 RDW 13.8 Plt Count 146 L Seg Neutrophils % 77.5 Sodium 138.3 Potassium 3.7 Chloride 102 Carbon Dioxide 27 Anion Gap 9 BUN 24 H Creatinine 1.29 H Est GFR ( Amer) 50 L Glucose 94 Calcium 9.2 Total Bilirubin 0.4 AST 14 Alkaline Phosphatase 94 Total Protein 5.9 L Albumin 3.4 L Urine Color YELLOW Urine Appearance SLIGHTLY-CLOUDY Urine pH 5.0 Ur Specific [place] 1.016 Urine Protein NEGATIVE Urine Glucose (UA) NEGATIVE Urine Ketones NEGATIVE Urine Blood NEGATIVE Urine Nitrite NEGATIVE Ur Leukocyte Esterase MODERATE H Urine WBC (Auto) 24 Urine RBC (Auto) 3 05/13/19 05/13/19 20:00 20:00 Creatine Kinase < 20 L Troponin I < 0.012 Impressions: Head CT 05/13/19 20:55 IMPRESSION: No acute intracranial abnormality is identified. Assessment and Plan - Diagnosis (1) Generalized muscle weakness Is this a current diagnosis for this admission?: Yes Plan: The patient will be admitted to medical floor and her vital signs and activities will be observed closely. A PT and OT consult will be obtained. An MRI of the brain will be performed. Further evaluation and treatment will be based upon the results of her initial evaluations. A daily CBC will be obtained. (2) Pyuria Is this a current diagnosis for this admission?: Yes Plan: A urine culture is pending at this time. Patient will be treated with Rocephin 1 g IV daily pending culture results. (3) Osteoarthritis Qualifiers: Osteoarthritis location: multiple joints Osteoarthritis type: primary Qualified Code(s): M15.0 - Primary generalized (osteo)arthritis Is this a current diagnosis for this admission?: Yes Plan: Patient will be treated with a regimen of acetaminophen and tramadol in order to avoid further renal injury due to ongoing use of NSAIDs. (4) CKD (chronic kidney disease) stage 3, GFR 30-59 ml/min Is this a current diagnosis for this admission?: Yes Plan: Patient's kidney functions will be monitored with daily metabolic profile evaluations. (5) DVT prophylaxis Is this a current diagnosis for this admission?: Yes Plan: Patient received routine mechanical DVT prophylaxis with XENA hose and pharmaceutical DVT prophylaxis with heparin. (6) Dysthymia Is this a current diagnosis for this admission?: Yes Plan: Psychiatric consultation will be obtained. - Time Time Spent with patient: 25-34 minutes Medications reviewed and adjusted accordingly: Yes Anticipated discharge: Home with Homehealth, SNF - Inpatient Certification Based on my medical assessment, after consideration of the patient's comorbidities, presenting symptoms, or acuity I expect that the services needed warrant INPATIENT care.: Yes I certify that my determination is in accordance with my understanding of Medicare's requirements for reasonable and necessary INPATIENT services [42 CFR 412.3e].: Yes Medical Necessity: Need Close Monitoring Due to Risk of Patient Decompensation, Need for Neurological Checks, Need for IV Antibiotics, Risk of Complication if Not Cared For in Hospital
[2019-05-14 05:08] LABS: FREE T3 3.55 pg/mL (2.77-5.27); FREE T4 (FREE THYROXINE) 1.36 ng/dL (0.78-2.19)
[2019-05-14 05:22] LABS: THYROID STIMULATING HORMONE 0.86 uIU/mL (0.47-4.68)
[2019-05-14] MEDS: ACETAMINOPHEN 325 MG TABLET PO SCH ×3 (06:59→21:53)
[2019-05-14] MEDS: HEPARIN SOD (PORCINE) 5,000 UNIT/ML 1 ML VIAL SUBCUT SCH ×3 (06:59→21:54)
[2019-05-14] MEDS: TRAMADOL HCL 50 MG TABLET PO SCH ×3 (07:00→21:51)
[2019-05-14] MEDS: DOCUSATE SODIUM 100 MG CAPSULE PO SCH ×2 (09:40→17:56)
[2019-05-14] MEDS: FAMOTIDINE 20 MG TABLET PO SCH ×2 (09:41→21:53)
--- NOTE | 2019-05-14 12:56 | RADIOLOGY REPORT (SQ) ---
EXAM DESCRIPTION: MRI HEAD WITHOUT COMPLETED DATE/TIME: 05/14/2019 11:52 am REASON FOR STUDY: new onset weakness left LE COMPARISON: CT brain 05/13/2019 TECHNIQUE: Multiplanar imaging includes non-contrasted T1, T2, FLAIR, and diffusion with ADC map seq uences. Images stored on PACS. LIMITATIONS: None. FINDINGS: ANATOMY: No anomalies. Normal vascular flow voids. Pituitary fossa normal. CSF SPACES: Normal in size and contour. No hemorrhage. CEREBRUM: Sulci and gyri normal in size and contour. Normal white matter signal on FLAIR imaging. No evidence of hemorrhage, mass, or extraaxial fluid collection. POSTERIOR FOSSA: No signal alteration. No hemorrhage. No edema, masses or mass effect. Internal christina tory canals, cerebello-pontine angles, mastoids normal. DIFFUSION IMAGING: Negative for acute or sub-acute infarction. ORBITS: No masses. Globes normal. PARANASAL SINUSES: No fluid levels. Mucosa normal. OTHER: No other significant finding. IMPRESSION: NORMAL MRI OF THE BRAIN WITHOUT INTRAVENOUS GADOLINIUM CONTRAST. EVIDENCE OF ACUTE STROKE: NO. TECHNICAL DOCUMENTATION: JOB ID: [id number] [employer]- All Rights Reserved Reading location - IP/workstation name: [email or web address]
--- NOTE | 2019-05-14 13:59 | Progress Note ---
Provider Note Provider Note: 05/14/2019-Patient admitted earlier this a.m. Seen by physical therapy. Good push pulls in grasp bilaterally. Weakness seems to be resolving somewhat. We will continue to follow make change plan of care based on needs.
--- NOTE | 2019-05-14 20:04 | PSYCHOLOGICAL NOTE ---
Psych Note - Psych Note Date seen by psych provider: 05/14/19 Time seen by psych provider: 08:17 - Chart review at 0817. Medication review (on physical chart) then evaluation from 171 to 184. Psych Note: Presenting Problem: Depression, lots of loss, off prescribed medications for a week. Outpatient psychiatric medication provider is Dr. Sandoval at [facility]. Therapist is Ronda Parker at [facility] once every two weeks. She was able to discuss and process her stress: today is son's birthday that 2 years ago, 3rd anniversary of 's was April 2019, since January had been dealing with another son and having to evict him, moving from the home she lived in with her and that her son in to a smaller home (she actually has hope related to the move), recent issues at work (a mus[employer] she worked at for 35 years) which resulted in her long-term and her son and [id number] that help her out a lot (vceyayag-ic-auy is essentially payee) thinking she does not appreciate them. She denied SI and stated "if I were to I'd be okay with it and I do want to be with my and son but suicide is not an option." She admitted she is forgetful and from May 05 until Tuesday she had not taken medications due to moving. She noted she had the following symptoms while off medication: pain her her chest that moved to her back, trouble breathing, felt dizzy, unable to stay focused, slurred speech, increased memory issues. She identified if she does not take Ambien at night she "falls asleep eventually, waked up 1-2 hours later and had trouble getting back to sleep." She stated when she takes Ambien she "gets tired by afternoon, gets increased energy by 1700, then has trouble settling her mind/energy so is up until [id number], falls asleep quick, gets solid sleep, does not dream and is up at 0500." She mentioned she had been informed she had a UTI that may have also caused some symptoms. Patient was alert and oriented x5 with linear thinking, she denied SI/HI, mood was euthymic with congruent affect, she was able to engage in evaluation and carry on dialogue conversation, conversational speech was within normal limits for rate/tone/prosody and she was able to discuss/process her stress. Medication list included the following psychiatric medications: To treat ADHD, Depression, Panic Attacks, Sleep Adderall 10MG 1-2 tabs QD Adderall XR 2.5 tabs QAM Wellbutrin 150MG QD (patient noted this was added 2-3 months ago to work in combo with Zoloft) Zoloft 250MG QD Ambien 10MG QHS Diagnosis: Depression Lots of recent transitions Medication recommendations made by the psychiatric medical provider, Dr. Viral MD., includes: Decrease Wellbutrin to 75MG daily x 7 days then discontinue Decrease Zoloft to 100MG daily x 7 days then decrease to 50MG daily x 5 days then discontinue Discontinue Ambien 10MG at night for sleep Add Propanolol 10MG twice a day for anxiety/calming effect/sleep Impression/Plan: Patient is cleared from acute psychiatric services. Patient was alert and oriented x5 with linear thinking, she denied SI/HI, mood was euthymic with congruent affect, she was able to engage in evaluation and carry on dialogue conversation, conversational speech was within normal limits for rate/tone/prosody and she was able to discuss/process her stress. She has medication management with Dr. Sandoval at [facility] and therapy with Ronda Parker at [facility] every other week. She is recommended to continue follow up with these providers. Consulted with Dr. Buckner regarding the management and care of patient. Attending Hospitalist made aware of recommendations.
[2019-05-14] MEDS ORDERED: CEFTRIAXONE 1 GM/D5W RTU 1 GM/50 ML RTUPB IV SCH (22:00)
[2019-05-15] MEDS: TRAMADOL HCL 50 MG TABLET PO SCH ×3 (05:44→23:35)
[2019-05-15] MEDS: ACETAMINOPHEN 325 MG TABLET PO SCH ×3 (05:45→23:35)
[2019-05-15] MEDS: HEPARIN SOD (PORCINE) 5,000 UNIT/ML 1 ML VIAL SUBCUT SCH (05:48)
[2019-05-15 06:30] LABS: HEMOGLOBIN 12.5 g/dL (12.0-15.5); MEAN CORPUSCULAR HEMOGLOBIN 27.8 pg (27.0-33.4); MEAN CORPUSCULAR HGB CONC 33.9 g/dL (32.0-36.0); MEAN CORPUSCULAR VOLUME 82 fl (80-97); PLATELET COUNT 153 10^3/uL (150-450); RED BLOOD COUNT 4.51 10^6/uL (3.72-5.28); RED CELL DISTRIBUTION WIDTH 13.6 % (11.5-14.0); WHITE BLOOD COUNT 4.5 10^3/uL (4.0-10.5)
[2019-05-15 06:58] LABS: ANION GAP 8 (5-19); BLOOD UREA NITROGEN 19 mg/dL (7-20); CALCIUM 8.6 mg/dL (8.4-10.2); CARBON DIOXIDE 28 mmol/L (22-30); CHLORIDE 103 mmol/L (98-107); GLUCOSE 74 mg/dL (75-110); POTASSIUM 4.6 mmol/L (3.6-5.0)
[2019-05-15] MEDS ORDERED: BACLOFEN 10 MG TABLET PO PRN (08:44)
[2019-05-15] MEDS ORDERED: METHOCARBAMOL 500 MG TABLET PO PRN (08:44)
[2019-05-15] MEDS ORDERED: (PENDING PHARMACY ID) (Bupropion Hcl [Wellbutrin Xl 150 Mg 24hr Tablet] 150 MG) PO SCH (10:00)
[2019-05-15] MEDS ORDERED: (PENDING PHARMACY ID) (Lisinopril [Prinivil] 20 MG) PO SCH (10:00)
[2019-05-15] MEDS ORDERED: (PENDING PHARMACY ID) (Tolterodine Tartrate [Detrol La] 4 MG) PO SCH (10:00)
[2019-05-15] MEDS ORDERED: SERTRALINE HCL 250 MG PO SCH (10:00)
[2019-05-15] MEDS: FAMOTIDINE 20 MG TABLET PO SCH ×2 (11:14→23:29)
[2019-05-15] MEDS: DOCUSATE SODIUM 100 MG CAPSULE PO SCH ×2 (11:14→18:37)
[2019-05-15] MEDS: TOLTERODINE TARTRATE 1 MG TABLET PO SCH ×2 (11:15→23:29)
[2019-05-15] MEDS: FLUTICASONE NASAL SPRAY 50 MCG/SPRY 120 SPRAY/16 GM NASL SCH (11:15)
[2019-05-15] MEDS: LISINOPRIL 10 MG TABLET PO SCH (11:16)
[2019-05-15] MEDS: BUPROPION HCL 75 MG TABLET PO SCH ×2 (11:17→23:36)
[2019-05-15] MEDS: SERTRALINE HCL 50 MG TABLET PO SCH (11:17)
[2019-05-15] MEDS: PREGABALIN 100 MG CAPSULE PO SCH ×2 (13:17→23:28)
--- NOTE | 2019-05-15 19:55 | PDOC PROGRESS REPORT ---
Subjective Progress Note for:: 05/15/19 Subjective:: PETER PINK is a 69 year old female who presented to the emergency room with a 2-week history of weakness. Patient admitted a slowly progressive generalized weakness over the last 2 weeks becoming severe today preventing her ability to ambulate due to bilateral leg weakness with the left being weaker than the right. She also complains of intermittent weakness in her right arm. She denies other associated or accompanying signs or symptoms. She denies prior similar episodes. She has not identified any aggravating or ameliorating factors for her weakness. In the emergency room the patient seemed to be somewhat confused at the time of evaluation as she varied her complaints and gave inconsistent statements. When it was pointed out that EMS reported she had not been taking her medications she quickly stated that she just forgot to take them. A CT scan of her head was negative for acute changes. Patient was found to have mild pyuria and was subsequently admitted to the hospital for further evaluation and treatment. 05/15/2019. No acute events overnight. Complaining of generalized weakness, any fever, chills, nausea, vomiting, diarrhea, constipation or any urinary symptoms. Reason For Visit: GENERALIZED WEAKNESS, PYURIA, OSTEOARTHRITIS Physical Exam Vital Signs: Temp Pulse Resp BP Pulse Ox 97.9 F 71 14 117/79 100 05/15/19 14:47 05/15/19 14:47 05/15/19 14:47 05/15/19 14:47 05/15/19 14:47 Intake & Output 05/14/19 05/15/19 05/16/19 06:59 06:59 06:59 Intake Total 50 650 600 Balance 50 650 600 Weight 79.3 kg 70.7 kg General appearance: PRESENT: obese Head exam: PRESENT: atraumatic, normocephalic Respiratory exam: PRESENT: clear to auscultation vaughn. ABSENT: rales, rhonchi, wheezes Pulses: PRESENT: normal dorsalis pedis pul GI/Abdominal exam: PRESENT: normal bowel sounds, soft. ABSENT: distended, guarding, mass, organolmegaly, rebound, tenderness Neurological exam: PRESENT: alert, awake, oriented to person, oriented to place, oriented to time, oriented to situation, CN II-XII grossly intact. ABSENT: motor sensory deficit Results Laboratory Results: 05/15/19 05:48 05/15/19 05:48 05/15/19 05/15/19 05:48 05:48 WBC 4.5 RBC 4.51 Hgb 12.5 Hct 37.0 MCV 82 MCH 27.8 MCHC 33.9 RDW 13.6 Plt Count 153 Sodium 138.9 Potassium 4.6 Chloride 103 Carbon Dioxide 28 Anion Gap 8 BUN 19 Creatinine 0.83 Est GFR ( Amer) > 60 Glucose 74 L Calcium 8.6 Magnesium 1.8 05/13/19 22:45 Catheterized Urine Urine Culture - Final Klebsiella Pneumoniae 05/13/19 05/13/19 20:00 20:00 Creatine Kinase < 20 L Troponin I < 0.012 Impressions: Head CT 05/13/19 20:55 IMPRESSION: No acute intracranial abnormality is identified. Head MRI 05/14/19 00:00 IMPRESSION: NORMAL MRI OF THE BRAIN WITHOUT INTRAVENOUS GADOLINIUM CONTRAST. EVIDENCE OF ACUTE STROKE: NO. Assessment and Plan - Diagnosis (1) Urinary tract infection Qualifiers: Urinary tract infection type: site unspecified Hematuria presence: with hematuria Qualified Code(s): N39.0 - Urinary tract infection, site not specified; R31.9 - Hematuria, unspecified Is this a current diagnosis for this admission?: Yes Plan: Due to Klebsiella pneumonia. Pansensitive. Day 2 IV ceftriaxone. Day 1 levofloxacin. Will DC home tomorrow with p.o. antibiotics. (2) Generalized muscle weakness Is this a current diagnosis for this admission?: Yes Plan: Likely due to underlying UTI. Improving. Brain CT and MRI negative for any acute stroke. PT OT has been consulted and recommendation has been noted. She will be discharged on home PT and OT. Discharge planning has been consulted. (3) Dysthymia Is this a current diagnosis for this admission?: Yes Plan: Patient has been seen and evaluated by psychiatric services. Cleared from acute psychiatric services. Recommendations noted. Outpatient psychiatry follow-up. (4) Osteoarthritis Qualifiers: Osteoarthritis location: multiple joints Osteoarthritis type: primary Qualified Code(s): M15.0 - Primary generalized (osteo)arthritis Is this a current diagnosis for this admission?: Yes Plan: Supportive measures. Will provide opioid and non-opioid analgesics. Avoid NSAIDs due to APOLLO. PT OT consulted. Recommendations noted. Patient will be discharged home on home PT and OT. (5) CKD (chronic kidney disease) stage 3, GFR 30-59 ml/min Is this a current diagnosis for this admission?: Yes Plan: Renal function WNL. Electrolytes WNL. Outpatient PCP and nephrology follow-up.
[2019-05-15] MEDS ORDERED: DOCUSATE SODIUM 100 MG CAPSULE PO SCH (22:00)
[2019-05-15] MEDS ORDERED: RIVAROXABAN 10 MG TABLET PO SCH (22:00)
[2019-05-15] MEDS ORDERED: ZOLPIDEM TARTRATE 5 MG TABLET PO PRN (23:52)
[2019-05-16] MEDS: PREGABALIN 100 MG CAPSULE PO SCH (07:01)
[2019-05-16] MEDS: TRAMADOL HCL 50 MG TABLET PO SCH (07:04)
[2019-05-16] MEDS: ACETAMINOPHEN 325 MG TABLET PO SCH (07:04)
[2019-05-16] MEDS ORDERED: DEXTROAMPHETAMINE PO SCH (08:00)
[2019-05-16] MEDS ORDERED: AMPHETAMINE PO SCH (08:00)
[2019-05-16 08:05] LABS: ABSOLUTE LYMPHOCYTES (AUTO) 0.7 10^3/uL (0.5-4.7); ABSOLUTE MONOCYTES (AUTO) 0.4 10^3/uL (0.1-1.4); ABSOLUTE NEUT (AUTO) 2.9 10^3/uL (1.7-8.2); BASOPHILS % (AUTO) 0.5 % (0-2); EOSINOPHILS % (AUTO) 1.1 % (0-6); HEMATOCRIT 40.1 % (36.0-47.0); HEMOGLOBIN 13.5 g/dL (12.0-15.5); LYMPHOCYTES % (AUTO) 17.3 % (13-45); MEAN CORPUSCULAR HEMOGLOBIN 27.6 pg (27.0-33.4); MEAN CORPUSCULAR HGB CONC 33.8 g/dL (32.0-36.0); MEAN CORPUSCULAR VOLUME 82 fl (80-97); MONOCYTES % (AUTO) 9.9 % (3-13); PLATELET COUNT 178 10^3/uL (150-450); RED CELL DISTRIBUTION WIDTH 13.5 % (11.5-14.0); SEGMENTED NEUTROPHILS % (AUTO) 71.2 % (42-78); TOTAL CELLS COUNTED % (AUTO) 100 %
[2019-05-16 08:28] LABS: ALBUMIN 3.4 g/dL (3.5-5.0); ALKALINE PHOSPHATASE 93 U/L (38-126); ANION GAP 7 (5-19); ASPARTATE AMINO TRANSFERASE 28 U/L (14-36); BILIRUBIN,DIRECT 0.2 mg/dL (0.0-0.4); BILIRUBIN,TOTAL 0.2 mg/dL (0.2-1.3); BLOOD UREA NITROGEN 17 mg/dL (7-20); CALCIUM 9.1 mg/dL (8.4-10.2); CARBON DIOXIDE 29 mmol/L (22-30); CHLORIDE 104 mmol/L (98-107); GLUCOSE 80 mg/dL (75-110); POTASSIUM 4.2 mmol/L (3.6-5.0)
[2019-05-16 09:35] VITALS: BP 121/70
[2019-05-16] MEDS ORDERED: LEVOFLOXACIN 500 MG TABLET PO SCH (10:00)
[2019-05-16] MEDS: TOLTERODINE TARTRATE 1 MG TABLET PO SCH (10:01)
[2019-05-16] MEDS: LISINOPRIL 10 MG TABLET PO SCH (10:02)
[2019-05-16] MEDS: SERTRALINE HCL 50 MG TABLET PO SCH (10:02)
[2019-05-16] MEDS: DOCUSATE SODIUM 100 MG CAPSULE PO SCH (10:02)
[2019-05-16] MEDS: FAMOTIDINE 20 MG TABLET PO SCH (10:03)
[2019-05-16] MEDS: BUPROPION HCL 75 MG TABLET PO SCH (10:03)
[2019-05-16] MEDS: FLUTICASONE NASAL SPRAY 50 MCG/SPRY 120 SPRAY/16 GM NASL SCH (10:15)
--- NOTE | 2019-05-20 16:55 | PDOC DISCHARGE SUMMARY ---
General - Admit/Disc Date/PCP Admission Date/Primary Care Provider: 05/14/19 01:41 ARMANI RIVERA, DO Discharge Date: 05/16/19 - Discharge Diagnosis (1) Urinary tract infection Is this a current diagnosis for this admission?: Yes (2) Generalized muscle weakness Is this a current diagnosis for this admission?: Yes (3) Dysthymia Is this a current diagnosis for this admission?: Yes (4) Osteoarthritis Is this a current diagnosis for this admission?: Yes (5) CKD (chronic kidney disease) stage 3, GFR 30-59 ml/min Is this a current diagnosis for this admission?: Yes - Additional Information Resuscitation Status: Full Code Discharge Diet: As Tolerated Discharge Activity: Activity As Tolerated Prescriptions: Levofloxacin [Levaquin 500 mg Tablet] 500 mg PO DAILY 4 Days #4 tablet Home Medications: Baclofen [Baclofen 10 mg Tablet] 10 mg PO BIDP PRN 05/14/19 Bupropion HCl [Wellbutrin Xl 150 mg 24hr Tablet] 150 mg PO DAILY 05/14/19 Dextroamphetamine/Amphetamine [Adderall 10 mg Tablet] 10 mg PO DAILY 05/14/19 Dextroamphetamine/Amphetamine [Adderall XR 20 mg Capsule] 50 mg PO QAM 05/14/19 Diclofenac Sodium [Voltaren] 100 gm TP Q8HP PRN 05/14/19 Docusate Sodium [Stool Softener] 100 mg PO QHS 05/14/19 Fluticasone Propionate [Flonase Nasal [place] 50 Mcg/[place] 16 gm] 2 sprays NASL DAILY 05/14/19 Hydrochlorothiazide [Hydrodiuril 25 mg Tablet] 25 mg PO DAILY 05/14/19 Lidocaine HCl [Xylocaine 5% Ointment 35.44 gm] 1 applic TP QIDP PRN 05/14/19 Lidocaine [Lidoderm 5% (700 mg) Transdermal Patch] 1 patch TP DAILYP PRN 05/14/19 Lisinopril [Prinivil] 20 mg PO DAILY 05/14/19 Methocarbamol [Robaxin 500 mg Tablet] 500 mg PO QIDP PRN 05/14/19 Nystatin [Mycostatin Cream 15 gm] 1 applic TP ASDIR PRN 05/14/19 Pregabalin [Lyrica 100 mg Capsule] 100 mg PO Q8 05/14/19 Rivaroxaban [Xarelto] 20 mg PO QHS 05/14/19 Sertraline HCl [Zoloft] 250 mg PO DAILY 05/14/19 Tolterodine Tartrate [Detrol LA] 4 mg PO BID 05/14/19 Zolpidem Tartrate [Ambien] 10 mg PO QHS 05/14/19 Levofloxacin [Levaquin 500 mg Tablet] 500 mg PO DAILY 4 Days #4 tablet 05/16/19 History of Present Illness History of Present Illness: PETER PINK is a 69 year old female Hospital Course Hospital Course: (1) Urinary tract infection Due to Klebsiella pneumonia. Pansensitive. Day 2 IV ceftriaxone. Day 1 levofloxacin. Was DC'd on p.o. levofloxacin for another 4 days. (2) Generalized muscle weakness Significant improvement. As per patient she is back to her baseline. Likely due to underlying UTI. Brain CT and MRI negative for any acute stroke. PT OT was consulted and recommendation has been noted. Will discharge on home PT/OT home health. Please refer to conference planner note. (3) Dysthymia Restarted on home meds. Was evaluated by psychiatric services. Cleared from acute psychiatric services. Established outpatient psychiatrist. Encouraged to follow-up with psychiatrist and PCP. (4) Osteoarthritis Supportive measures. Was provided provide opioid and non-opioid analgesics. Encouraged avoid NSAIDs avoid NSAIDs due to CKD. PT OT consulted. Recommendations noted. Discharged on home PT and OT. (5) CKD (chronic kidney disease) stage 3, GFR 30-59 ml/min Renal function WNL. Electrolytes WNL. Outpatient PCP and nephrology follow-up. Physical Exam Vital Signs: Temp Pulse Resp BP Pulse Ox 98.0 F 65 12 121/70 97 05/16/19 09:34 05/16/19 09:34 05/16/19 09:34 05/16/19 09:34 05/16/19 09:34 General appearance: PRESENT: obese Respiratory exam: PRESENT: clear to auscultation vaughn. ABSENT: rales, rhonchi, wheezes Cardiovascular exam: PRESENT: RRR. ABSENT: diastolic murmur, rubs, systolic murmur GI/Abdominal exam: PRESENT: normal bowel sounds, soft. ABSENT: distended, guarding, mass, organolmegaly, rebound, tenderness Neurological exam: PRESENT: alert, awake, oriented to person, oriented to place, oriented to time, oriented to situation, CN II-XII grossly intact. ABSENT: motor sensory deficit Results Laboratory Results: 05/16/19 07:46 05/16/19 07:46 05/13/19 05/13/19 20:00 20:00 Creatine Kinase < 20 L Troponin I < 0.012 Impressions: Head CT 05/13/19 20:55 IMPRESSION: No acute intracranial abnormality is identified. Head MRI 05/14/19 00:00 IMPRESSION: NORMAL MRI OF THE BRAIN WITHOUT INTRAVENOUS GADOLINIUM CONTRAST. EVIDENCE OF ACUTE STROKE: NO. Qualifiers - * PATIENT BEING DISCHARGED WITH ANY OF THE FOLLOWING DIAGNOSIS: No VTE patient discharged on overlapping Therapy?: Yes Acute Heart Failure - Is this a Heart Failure Patient?: No
== END 2019-05-16 11:20 | disposition home or self-care (01) | DRG 690 ==
LOC: ER 19:06 → EH 05-14 01:41 → 2N 05-14 04:15
PROVIDERS: ADMIT Emergency Medicine; ATTEND Emergency Medicine
PROC: 5A09457 Assistance with Respiratory Ventilation, 24-96 Consecutive Hours, Continuous Positive Airway Pressure (ICD-10-PCS; principal; 2019-05-14)
DX: N39.0 Urinary tract infection, site not specified (principal); D68.51 Activated protein C resistance; I12.9 Hypertensive chronic kidney disease with stage 1 through stage 4 chronic kidney disease, or unspecified chronic kidney disease; N18.3 Chronic kidney disease, stage 3 (moderate); E66.9 Obesity, unspecified; F90.9 Attention-deficit hyperactivity disorder, unspecified type; F41.1 Generalized anxiety disorder; M15.0 Primary generalized (osteo)arthritis; I45.19 Other right bundle-branch block; B96.1 Klebsiella pneumoniae [K. pneumoniae] as the cause of diseases classified elsewhere; R47.81 Slurred speech; F34.1 Dysthymic disorder; Z60.2 Problems related to living alone; Z79.899 Other long term (current) drug therapy; Z88.6 Allergy status to analgesic agent; Z88.2 Allergy status to sulfonamides; Z88.7 Allergy status to serum and vaccine; Z63.4 Disappearance and death of family member; Z82.49 Family history of ischemic heart disease and other diseases of the circulatory system; Z83.3 Family history of diabetes mellitus; Z80.9 Family history of malignant neoplasm, unspecified
CPT/HCPCS: 36415; 51701; 70450; 70551; 80048; 80053; 81001; 82550; 83735; 84439; 84443; 84481; 84484; 85025; 85027; 87040; 87086; 87088; 87186; 93005; 93010; 94660; 96374; 99285; J0696; J1644; J3490

== ENCOUNTER 2019-05-21 14:32 | Observation (INO) | payer MEDICARE ==
--- NOTE | 2019-05-21 15:12 | ER Document Report ---
ED Medical Screen (RME) - General Chief Complaint: Weakness Stated Complaint: WEAKNESS Time Seen by Provider: 05/21/19 15:01 Primary Care Provider: ARAMNI RIVERA DO [Primary Care Provider] - Follow up as needed Mode of Arrival: Wheelchair Information source: Patient Notes: Patient is a 69-year-old female recently discharged from this hospital for weakness and urinary tract infection presenting with what she calls worsening symptoms. She states her urinary tract infection has not resolved and she reports that today she started having severe shortness of breath and fatigue. 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 She is tachycardic and tachypneic at the time of arrival. Exam: 2+ edema noted to right lower extremity, patient states this is normal for her. Lung sounds clear but mildly diminished bilaterally. Increased work of breathing noted. Charge nurse made aware of patient's situation and presents in the department, need for immediate bed placement. I have greeted and performed a rapid initial assessment of this patient. A comprehensive ED assessment and evaluation of the patient, analysis of test results and completion of the medical decision making process will be conducted by additional ED providers. I have specifically instructed the patient or family members with the patient to immediately return to any nursing staff should anything change in the patient's condition or with their chief complaint. This medical record was dictated with voice recognizing software. There may be grammatical, syntax errors that are unintended. TRAVEL OUTSIDE OF THE [place] IN LAST 30 DAYS: No - Related Data Allergies/Adverse Reactions: oxycodone [From Percodan] Allergy (Verified 05/21/19 14:35) propoxyphene [From Darvon] Allergy (Verified 05/21/19 14:35) smallpox vaccine,live Allergy (Verified 05/21/19 14:35) Sulfa (Sulfonamide Antibiotics) Allergy (Verified 05/21/19 14:35) Past Medical History - Past Medical History Cardiac Medical History: Reports: Hx Hypertension Denies: Hx Coronary Artery Disease, Hx Heart Attack Pulmonary Medical History: Denies: Hx Asthma, Hx COPD Neurological Medical History: Denies: Hx Seizures Endocrine Medical History: Denies: Hx Diabetes Mellitus Type 1, Hx Diabetes Mellitus Type 2, Hx Hyperthyroidism, Hx Hypothyroidism Renal/ Medical History: Denies: Hx Peritoneal Dialysis GI Medical History: Denies: Hx Cirrhosis, Hx Crohn's Disease, Hx Hepatitis, Hx Ulcerative Colitis Musculoskeltal Medical History: Reports Hx Arthritis - Left knee, Denies Hx Gout Skin Medical History: Denies Hx Eczema, Denies Hx Psoriasis Psychiatric Medical History: Reports: Hx Attention Deficit Hyperactivity Disorder, Hx Depression Infectious Medical History: Denies: Hx Hepatitis Past Surgical History: Reports: Hx Abdominal Surgery - bariatic, Hx Appendectomy, Hx Gastric Bypass Surgery, Hx Vascular Surgery - Inferior vena cava filter, Other - Ectopic surgery, ovarian cystectomy, o ophorectomy, bladder tack. Physical Exam - Vital signs Vitals: Temp Pulse Resp BP Pulse Ox 97.5 F 119 H 24 H 110/56 L 95 05/21/19 14:37 05/21/19 14:37 05/21/19 14:37 05/21/19 14:37 05/21/19 14:37 Course - Vital Signs Vital signs: Temp Pulse Resp BP Pulse Ox 97.5 F 119 H 24 H 110/56 L 95 05/21/19 14:37 05/21/19 14:37 05/21/19 14:37 05/21/19 14:37 05/21/19 14:37 Doctor's Discharge - Discharge Referrals: ARMANI RIVERA DO [Primary Care Provider] - Follow up as needed
[2019-05-21 15:47] LABS: ABSOLUTE LYMPHOCYTES (AUTO) 1.2 10^3/uL (0.5-4.7); ABSOLUTE NEUT (AUTO) 10.2 10^3/uL (1.7-8.2); BASOPHILS % (AUTO) 0.4 % (0-2); HEMATOCRIT 45.1 % (36.0-47.0); HEMOGLOBIN 15.1 g/dL (12.0-15.5); LYMPHOCYTES % (AUTO) 9.7 % (13-45); MEAN CORPUSCULAR HEMOGLOBIN 27.2 pg (27.0-33.4); MEAN CORPUSCULAR HGB CONC 33.5 g/dL (32.0-36.0); MEAN CORPUSCULAR VOLUME 81 fl (80-97); MONOCYTES % (AUTO) 7.8 % (3-13); PLATELET COUNT 271 10^3/uL (150-450); RED BLOOD COUNT 5.56 10^6/uL (3.72-5.28); SEGMENTED NEUTROPHILS % (AUTO) 82.1 % (42-78); TOTAL CELLS COUNTED % (AUTO) 100 %; WHITE BLOOD COUNT 12.5 10^3/uL (4.0-10.5)
[2019-05-21 15:55] LABS: VENOUS BLOOD BASE EXCESS 2.8 mmol/L; VENOUS BLOOD HCO3 21.3 mmol/L (20-32); VENOUS BLOOD PCO2 20.6 mmHg (35-63); VENOUS BLOOD PH 7.63 (7.30-7.42)
[2019-05-21 16:09] LABS: ALBUMIN 4.1 g/dL (3.5-5.0); ALKALINE PHOSPHATASE 108 U/L (38-126); ANION GAP 14 (5-19); ASPARTATE AMINO TRANSFERASE 32 U/L (14-36); BILIRUBIN,DIRECT 0.2 mg/dL (0.0-0.4); BILIRUBIN,TOTAL 0.5 mg/dL (0.2-1.3); BLOOD UREA NITROGEN 21 mg/dL (7-20); CALCIUM 10.2 mg/dL (8.4-10.2); CARBON DIOXIDE 21 mmol/L (22-30); CHLORIDE 104 mmol/L (98-107); GLUCOSE 107 mg/dL (75-110); POTASSIUM 4.8 mmol/L (3.6-5.0); TOTAL PROTEIN 6.5 g/dL (6.3-8.2)
[2019-05-21] MEDS ORDERED: NORMAL SALINE 500 ML IV ONE ×2 (16:46→17:37)
[2019-05-21 17:24] LABS: NT PRO BNP 276 pg/mL (5-900)
[2019-05-21 17:30] LABS: TROPONIN I < 0.012 ng/mL
[2019-05-21] MEDS ORDERED: LORAZEPAM INJ 2 MG/1 ML VIAL IV ONE (17:36)
--- NOTE | 2019-05-21 17:37 | ER Document Report ---
ED General - General Chief Complaint: Weakness Stated Complaint: WEAKNESS Time Seen by Provider: 05/21/19 15:01 Primary Care Provider: ARMANI RIVERA DO [Primary Care Provider] - Follow up as needed Mode of Arrival: Wheelchair TRAVEL OUTSIDE OF THE [place] IN LAST 30 DAYS: No - HPI Notes: Patient presents with chief complaint of generalized weakness this is the first day she try to get out of her bed since being released from the hospital for urinary tract infection was discharged Tuesday of last week. She states every time she tries to get up she feels very lightheaded. She denies any vomiting but has had nausea denies any chest pain or abdominal pain at this time. She has had decreased appetite and has not been eating and drinking as much as she normally does. She states that she also began having burning with urination several days ago and feels like her urinary traction has come back. - Related Data Allergies/Adverse Reactions: oxycodone [From Percodan] Allergy (Verified 05/21/19 14:35) propoxyphene [From Darvon] Allergy (Verified 05/21/19 14:35) smallpox vaccine,live Allergy (Verified 05/21/19 14:35) Sulfa (Sulfonamide Antibiotics) Allergy (Verified 05/21/19 14:35) Past Medical History - General Information source: Patient - Social History Smoking Status: Never Smoker Family History: Reviewed & Not Pertinent Patient has suicidal ideation: No Patient has homicidal ideation: No - Past Medical History Cardiac Medical History: Reports: Hx Hypertension Denies: Hx Coronary Artery Disease, Hx Heart Attack Pulmonary Medical History: Denies: Hx Asthma, Hx COPD Neurological Medical History: Denies: Hx Seizures Endocrine Medical History: Denies: Hx Diabetes Mellitus Type 1, Hx Diabetes Mellitus Type 2, Hx Hyperthyroidism, Hx Hypothyroidism Renal/ Medical History: Denies: Hx Peritoneal Dialysis GI Medical History: Denies: Hx Cirrhosis, Hx Crohn's Disease, Hx Hepatitis, Hx Ulcerative Colitis Musculoskeletal Medical History: Reports Hx Arthritis - Left knee, Denies Hx Gout Skin Medical History: Denies Hx Eczema, Denies Hx Psoriasis Psychiatric Medical History: Reports: Hx Attention Deficit Hyperactivity Disorder, Hx Depression Infectious Medical History: Denies: Hx Hepatitis Past Surgical History: Reports: Hx Abdominal Surgery - bariatic, Hx Appendectomy, Hx Gastric Bypass Surgery, Hx Vascular Surgery - Inferior vena cava filter, Other - Ectopic surgery, ovarian cystectomy, ooph orectomy, bladder tack. - Immunizations Hx Pneumococcal Vaccination: 06/05/14 Review of Systems - Review of Systems Constitutional: See HPI EENT: No symptoms reported Cardiovascular: No symptoms reported Respiratory: No symptoms reported Gastrointestinal: No symptoms reported Genitourinary: See HPI Female Genitourinary: No symptoms reported Musculoskeletal: No symptoms reported Skin: No symptoms reported Hematologic/Lymphatic: No symptoms reported Neurological/Psychological: No symptoms reported Physical Exam - Vital signs Vitals: Temp Pulse Resp BP Pulse Ox 97.5 F 119 H 24 H 110/56 L 95 05/21/19 14:37 05/21/19 14:37 05/21/19 14:37 05/21/19 14:37 05/21/19 14:37 - General General appearance: Appears well, Alert - HEENT Head: Normocephalic, Atraumatic Eyes: Normal Conjunctiva: Normal Cornea: Normal Extraocular movements intact: Yes Pupils: PERRL - Respiratory Respiratory status: Tachypnea, Other - Appears anxious Chest status: Nontender Breath sounds: Normal Chest palpation: Normal - Cardiovascular Rhythm: Regular Heart sounds: Normal auscultation Murmur: No - Extremities General upper extremity: Normal inspection, Normal ROM General lower extremity: Other - Right leg greater than left and 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 Lungs are clear no abdominal pain. Due to history of blood clots and also history UTI that may be recurrent CTA chest abdomen pelvis performed at this time. 05/21/19 19:43 CTA chest abdomen pelvis no no acute abnormalities urine does not show any signs of infection. She does have acute renal injury per previous baseline creatinine. Will hydrate patient will be placed in observation status and possible need for SNF placement if she continues to be weak and deconditioned. - Vital Signs Vital signs: Temp Pulse Resp BP Pulse Ox 97.5 F 119 H 26 H 110/56 L 100 05/21/19 14:37 05/21/19 14:37 05/21/19 15:21 05/21/19 14:37 05/21/19 15:30 - Laboratory Result Diagrams: 05/21/19 15:21 05/21/19 15:21 Laboratory results interpreted by me: 05/21/19 05/21/19 05/21/19 15:21 15:21 15:21 WBC 12.5 H RBC 5.56 H Lymph % (Auto) 9.7 L Absolute Neuts (auto) 10.2 H Seg Neutrophils % 82.1 H VBG pH VBG pCO2 Carbon Dioxide 21 L BUN 21 H Creatinine 1.63 H Est GFR ( Amer) 38 L Est GFR (MDRD) Non-Af 31 L Lactic Acid 2.7 H Urine Ketones 05/21/19 05/21/19 15:21 18:56 WBC RBC Lymph % (Auto) Absolute Neuts (auto) Seg Neutrophils % VBG pH 7.63 H VBG pCO2 20.6 L Carbon Dioxide BUN Creatinine Est GFR ( Amer) Est GFR (MDRD) Non-Af Lactic Acid Urine Ketones TRACE H Discharge - Discharge Clinical Impression: Acute renal injury, Generalized weakness Condition: Good Disposition: ADMITTED OBSERVATION Admitting Provider: Bishop (Hospitalist) Unit Admitted: Medical Floor Referrals: ARMANI RIVERA DO [Primary Care Provider] - Follow up as needed
[2019-05-21] MEDS ORDERED: NORMAL SALINE 1000 ML 1,000 ML IV ONE (17:52)
--- NOTE | 2019-05-21 17:57 | RADIOLOGY REPORT (SQ) ---
EXAM DESCRIPTION: CTA CHEST COMPLETED DATE/TIME: 05/21/2019 5:30 pm REASON FOR STUDY: eval for PE COMPARISON: None. TECHNIQUE: CT scan of the chest performed using helical scanning technique with dynamic intravenous contrast injection. Images reviewed with lung, soft tissue and bone windows. Reconstructed coronal and sagittal MPR images reviewed. Additional 3 dimensional post-processing performed to develop Maximal Intensity Projection images ([place] P). All images stored on PACS. All CT scanners at this facility use dose modulation, iterative reconstruction, and/or weight based d osing when appropriate to reduce radiation dose to as low as reasonably achievable (ALARA). [facility]: Dose Right [facility]: CareDose [facility]: Dose Right [facility]: Teradose 4D [facility]: Tutor CONTRAST TYPE AND DOSE: contrast/concentration: Omnipaque 300 mg/ml; Total Contrast Delivered: 85.0 ml; Total Saline Delivered: 69.0 ml Contrast bolus adequate for pulmonary arteries and aorta. RENAL FUNCTION: BUN 21 creatinine 1.63 RADIATION DOSE: . LIMITATIONS: None. FINDINGS: LUNGS AND PLEURA: No masses, infiltrates, or pneumothorax. No pleural effusions or pleura l calcifications. AORTA AND GREAT VESSELS: No aneurysm. No dissection. HEART: No pericardial effusion. No significant coronary artery calcifications. PULMONARY ARTERIES: No emboli visualized in the main pulmonary arteries or the segmental branches. HILAR AND MEDIASTINAL STRUCTURES: No identified masses or abnormal nodes. HARDWARE: None in the chest. UPPER ABDOMEN: No significant findings. Limited exam. THYROID AND OTHER SOFT TISSUES: No masses. No adenopathy. BONES: No acute or significant finding. 3D MIPS: Confirm above findings. OTHER: No other significant finding. IMPRESSION: There is no aortic aneurysm or dissection. There are no pulmonary emboli. COMMENT: Quality ID # 436: Final reports with documentation of one or more dose reduction techniques (e.g., Automated exposure control, adjustment of the mA and/or kV according to patient size, use of iterative reconstruction technique) TECHNICAL DOCUMENTATION: JOB ID: [id number]- All Rights Reserved Reading location - IP/workstation name: [email or web address]
--- NOTE | 2019-05-21 18:04 | RADIOLOGY REPORT (SQ) ---
EXAM DESCRIPTION: CT ABD/PELVIS WITH IV ONLY COMPLETED DATE/TIME: 05/21/2019 5:30 pm REASON FOR STUDY: hx of UTI, eval for stones vs abd infection COMPARISON: None. TECHNIQUE: CT scan of the abdomen and pelvis performed using helical scanning technique with dynamic intravenous contrast injection. No oral contrast. Images reviewed with lung, soft tissue, and bone windows. Reconstructed coronal and sagittal MPR images reviewed. Delayed images for evaluation of the urinary system also acquired. All images stored on PACS. All CT scanners at this facility use dose modulation, iterative reconstruction, and/or weight based d osing when appropriate to reduce radiation dose to as low as reasonably achievable (ALARA). [facility]: Dose Right [facility]: CareDose [facility]: Dose Right [facility]: Teradose 4D [facility]: [id number] CONTRAST TYPE AND DOSE: 85 mL Omnipaque 300- low osmolar. RENAL FUNCTION: BUN 21 creatinine 1.63 RADIATION DOSE: CT Rad equipment meets quality standard of care and radiation dose reduction techniq ues were employed. CTDIvol: 6.6 - 19.8 mGy. DLP: 2095 mGy-cm.. LIMITATIONS: None. FINDINGS: LOWER CHEST: See separate report of the CT of the chest. LIVER: Normal size. No masses. No dilated ducts. SPLEEN: Normal size. No focal lesions. PANCREAS: No masses. No significant calcifications. No adjacent inflammation or peripancreatic fluid collections. Pancreatic duct not dilated. GALLBLADDER: No identified stones by CT criteria. No inflammatory changes to suggest cholecystitis. ADRENAL GLANDS: No significant masses or asymmetry. RIGHT KIDNEY AND URETER: No solid masses. No significant calcifications. No hydronephrosis or hyd roureter. LEFT KIDNEY AND URETER: No solid masses. No significant calcifications. No hydronephrosis or hydr oureter. AORTA AND VESSELS: No aneurysm. No dissection. Renal arteries, SMA, celiac without stenosis. RETROPERITONEUM: No retroperitoneal adenopathy, hemorrhage or masses. BOWEL AND PERITONEAL CAVITY: No masses or inflammatory changes. No free fluid or peritoneal masses. APPENDIX: Surgically absent. PELVIS: No mass. No free fluid. Normal bladder. ABDOMINAL WALL: No masses. No hernias. BONES: No significant or acute findings. OTHER: An IVC filter is present. IMPRESSION: NO SIGNIFICANT OR ACUTE FINDING IN THE ABDOMEN OR PELVIS ON CT SCAN WITH IV CONTRAST. TECHNICAL DOCUMENTATION: JOB ID: [id number] Quality ID # [id number]: Final reports with documentation of one or more dose reduction techniques (e.g., Au tomated exposure control, adjustment of the mA and/or kV according to patient size, use of iterative reconstruction technique) 2010 [employer]- All Rights Reserved Reading location - IP/workstation name: [email or web address]
--- NOTE | 2019-05-21 18:16 | EKG REPORT ---
SEVERITY:- OTHERWISE NORMAL ECG - SINUS TACHYCARDIA LEFT AXIS DEVIATION : Confirmed by: José Shankar MD 21-May-2019 18:16:00
[2019-05-21 19:30] LABS: APPEARANCE,URINE CLEAR; BILIRUBIN,URINE NEGATIVE (NEGATIVE); COLOR,URINE YELLOW; GLUCOSE, URINE NEGATIVE (NEGATIVE); KETONES,URINE TRACE mg/dL (NEGATIVE); LEUKOCYTE ESTERASE,URINE NEGATIVE (NEGATIVE); NITRITE,URINE NEGATIVE (NEGATIVE); PROTEIN,URINE NEGATIVE (NEGATIVE); URINE SPECIFIC GRAVITY 1.031; UROBILINOGEN,URINE NEGATIVE mg/dL (<2.0)
[2019-05-21] MEDS ORDERED: ACETAMINOPHEN 325 MG TABLET PO PRN (20:03)
[2019-05-21] MEDS ORDERED: MAG HYDROX/AL HYDROX/SIMETH SUSP 30 ML UDCUP PO PRN (20:03)
[2019-05-21 20:55] LABS: URINE AMPHETAMINES SCREEN NEGATIVE; URINE BARBITURATES SCREEN NEGATIVE; URINE BENZODIAZEPINES SCREEN NEGATIVE; URINE COCAINE SCREEN NEGATIVE; URINE MARIJUANA (THC) SCREEN NEGATIVE; URINE METHADONE SCREEN NEGATIVE; URINE PHENCYCLIDINE SCREEN NEGATIVE
[2019-05-21] MEDS ORDERED: LACTULOSE SYRUP 20 GM/30 ML UDCUP PO ONE (22:45)
[2019-05-21] MEDS: HEPARIN SOD (PORCINE) 5,000 UNIT/ML 1 ML VIAL SUBCUT SCH (23:28)
[2019-05-21] MEDS: NORMAL SALINE 1000 ML 1,000 ML IV PRN (23:40)
--- NOTE | 2019-05-22 04:59 | PDOC H&P ---
History of Present Illness Admission Date/PCP: 05/21/19 19:47 ARMANI RIVERA DO Patient complains of: Generalized weakness, fuzzy feeling History of Present Illness: PETER PINK is a 69 year old female with a past medical history of anxiety, depression, hypertension and polypharmacy. She presents with generalized weakness and a fuzzy feeling persisting for 10 days. She was observed 8 days ago for the same with recommendations to titrate off Wellbutrin, Adderall, Robaxin, Lyrica and Zoloft Zoloft with mental health follow-up. In the emergency room she describes vague complaints denies focal pain fever shortness of breath or chest pain. She is found to have acute renal failure with a creatinine of 1.6 and a lactic acid of 2.7 without hypotension. She is referred to the hospitalist for observation. Patient is a very anxious and subsequently poor historian she is unable to recall her current medications exactly. She denies homicidal or suicidal ideation. Past Medical History Cardiac Medical History: Reports: Hypertension Denies: Coronary Artery Disease, Myocardial Infarction Pulmonary Medical History: Denies: Asthma, Chronic Obstructive Pulmonary Disease (COPD) Neurological Medical History: Denies: Seizures Endocrine Medical History: Denies: Diabetes Mellitus Type 1, Diabetes Mellitus Type 2, Hyperthyroidism, Hypothyroidism Renal/ Medical History: Denies: End Stage Renal Disease GI Medical History: Denies: Cirrhosis, Crohn's Disease, Hepatitis, Ulcerative Colitis Musculoskeltal Medical History: Reports: Arthritis - Left knee Denies: Gout Skin Medical History: Denies: Eczema, Psoriasis Psychiatric Medical History: Reports: Attention Deficit Hyperactivity Disorder, Depression Hematology: Denies: Anemia, Bleeding Tendencies Past Surgical History Past Surgical History: Reports: Appendectomy, Gastric Bypass Surgery, Vascular Surgery - Inferior vena cava filter, Other - Ectopic surgery, ovarian cystectomy, oophorectomy, bladder tack. Social History Information Source: Patient Smoking Status: Never Smoker Frequency of Alcohol Use: None Hx Recreational Drug Use: No Drugs: None Hx Prescription Drug Abuse: No - Advance Directive Resuscitation Status: Full Code Family History Family History: CAD, Hypertension Parental Family History Reviewed: Yes Children Family History Reviewed: Yes Sibling(s) Family History Reviewed.: Yes Medication/Allergy Home Medications: Bupropion HCl [Wellbutrin Xl 150 mg 24hr Tablet] 150 mg PO DAILY 05/14/19 Dextroamphetamine/Amphetamine [Adderall 10 mg Tablet] 10 mg PO BID 05/14/19 Dextroamphetamine/Amphetamine [Adderall XR 20 mg Capsule] 40 mg PO QAM 05/14/19 Lisinopril [Prinivil] 20 mg PO DAILY 05/14/19 Pregabalin [Lyrica 100 mg Capsule] 100 mg PO Q8 05/14/19 Sertraline HCl [Zoloft] 250 mg PO DAILY 05/14/19 Tolterodine Tartrate [Detrol LA] 4 mg PO BID 05/14/19 Zolpidem Tartrate [Ambien] 10 mg PO QHS 05/14/19 Ascorbic Acid [Vitamin C 500 mg Tablet] 500 mg PO DAILY 05/21/19 Multivitamin [Daily Multiple Vitamin] 1 each PO DAILY 05/21/19 Allergies/Adverse Reactions: oxycodone [From Percodan] Allergy (Verified 05/21/19 14:35) propoxyphene [From Darvon] Allergy (Verified 05/21/19 14:35) smallpox vaccine,live Allergy (Verified 05/21/19 14:35) Sulfa (Sulfonamide Antibiotics) Allergy (Verified 05/21/19 14:35) Review of Systems Constitutional: PRESENT: as per HPI, fatigue, weakness. ABSENT: fever(s), headache(s), night sweats Eyes: ABSENT: visual disturbances Ears: ABSENT: hearing changes Cardiovascular: ABSENT: chest pain, dyspnea on exertion, edema, orthropnea, palpitations Respiratory: ABSENT: cough, hemoptysis Gastrointestinal: PRESENT: constipation. ABSENT: diarrhea, dysphagia, nausea, vomiting Genitourinary: ABSENT: dysuria, hematuria Musculoskeletal: PRESENT: as per HPI, muscle weakness. ABSENT: joint swelling Integumentary: ABSENT: rash, wounds Neurological: ABSENT: abnormal gait, abnormal speech, confusion, dizziness, focal weakness, syncope Psychiatric: PRESENT: as per HPI, anxiety, depression. ABSENT: hallucinations, homidical ideation, suicidal ideation Endocrine: ABSENT: cold intolerance, heat intolerance, polydipsia, polyuria Hematologic/Lymphatic: ABSENT: easy bleeding, easy bruising Physical Exam Vital Signs: Temp Pulse Resp BP Pulse Ox 97.8 F 74 19 141/74 H 100 05/21/19 23:33 05/22/19 02:00 05/21/19 23:33 05/21/19 23:33 05/21/19 23:33 Intake & Output 05/20/19 05/21/19 05/22/19 11:59 11:59 11:59 Intake Total 1999 Balance 1999 Weight 73.7 kg General appearance: PRESENT: cooperative, disheveled, mild distress Head exam: PRESENT: atraumatic, normocephalic Eye exam: PRESENT: conjunctiva pink, EOMI, PERRLA. ABSENT: scleral icterus Ear exam: PRESENT: normal external ear exam Mouth exam: PRESENT: dry mucosa, tongue midline Neck exam: ABSENT: carotid bruit, JVD, lymphadenopathy, thyromegaly Respiratory exam: PRESENT: clear to auscultation vaughn. ABSENT: rales, rhonchi, wheezes Cardiovascular exam: PRESENT: RRR. ABSENT: diastolic murmur, rubs, systolic murmur Pulses: PRESENT: normal dorsalis pedis pul Vascular exam: PRESENT: normal capillary refill GI/Abdominal exam: PRESENT: normal bowel sounds, soft. ABSENT: distended, guarding, mass, organolmegaly, rebound, tenderness Rectal exam: PRESENT: deferred Extremities exam: PRESENT: full ROM. ABSENT: calf tenderness, clubbing, pedal edema Neurological exam: PRESENT: alert, awake, oriented to person, oriented to place, oriented to time, oriented to situation, CN II-XII grossly intact. ABSENT: motor sensory deficit Psychiatric exam: PRESENT: anxious, unusual affect. ABSENT: flat affect, normal mood Focused psych exam: PRESENT: flight of ideas, restlessness. ABSENT: catatonic, delusional Skin exam: PRESENT: dry, intact, warm. ABSENT: cyanosis, rash Results Laboratory Results: 05/21/19 15:21 05/21/19 15:21 05/21/19 05/21/19 05/21/19 15:21 15:21 15:21 WBC 12.5 H RBC 5.56 H Hgb 15.1 Hct 45.1 MCV 81 MCH 27.2 MCHC 33.5 RDW 14.0 Plt Count 271 Seg Neutrophils % 82.1 H VBG pH VBG pCO2 VBG HCO3 VBG Base Excess Sodium 139.0 Potassium 4.8 Chloride 104 Carbon Dioxide 21 L Anion Gap 14 BUN 21 H Creatinine 1.63 H Est GFR ( Amer) 38 L Glucose 107 Lactic Acid 2.7 H Calcium 10.2 Total Bilirubin 0.5 AST 32 Alkaline Phosphatase 108 Total Protein 6.5 Albumin 4.1 Lipase 154.9 TSH Urine Color Urine Appearance Urine pH Ur Specific [place] Urine Protein Urine Glucose (UA) Urine Ketones Urine Blood Urine Nitrite Ur Leukocyte Esterase Urine WBC (Auto) Urine RBC (Auto) 05/21/19 05/21/19 05/21/19 15:21 15:21 18:56 WBC RBC Hgb Hct MCV MCH MCHC RDW Plt Count Seg Neutrophils % VBG pH 7.63 H VBG pCO2 20.6 L VBG HCO3 21.3 VBG Base Excess 2.8 Sodium Potassium Chloride Carbon Dioxide Anion Gap BUN Creatinine Est GFR ( Amer) Glucose Lactic Acid Calcium Total Bilirubin AST Alkaline Phosphatase Total Protein Albumin Lipase TSH 2.58 Urine Color YELLOW Urine Appearance CLEAR Urine pH 9.0 Ur Specific [place] 1.031 Urine Protein NEGATIVE Urine Glucose (UA) NEGATIVE Urine Ketones TRACE H Urine Blood NEGATIVE Urine Nitrite NEGATIVE Ur Leukocyte Esterase NEGATIVE Urine WBC (Auto) 1 Urine RBC (Auto) 1 05/21/19 19:54 WBC RBC Hgb Hct MCV MCH MCHC RDW Plt Count Seg Neutrophils % VBG pH VBG pCO2 VBG HCO3 VBG Base Excess Sodium Potassium Chloride Carbon Dioxide Anion Gap BUN Creatinine Est GFR ( Amer) Glucose Lactic Acid 1.3 Calcium Total Bilirubin AST Alkaline Phosphatase Total Protein Albumin Lipase TSH Urine Color Urine Appearance Urine pH Ur Specific [place] Urine Protein Urine Glucose (UA) Urine Ketones Urine Blood Urine Nitrite Ur Leukocyte Esterase Urine WBC (Auto) Urine RBC (Auto) 05/21/19 15:21 Troponin I < 0.012 NT-Pro-B Natriuret Pep 276 Impressions: Chest/Abdomen CTA 05/21/19 15:45 IMPRESSION: There is no aortic aneurysm or dissection. There are no pulmonary emboli. Abdomen/Pelvis CT 05/21/19 16:56 IMPRESSION: NO SIGNIFICANT OR ACUTE FINDING IN THE ABDOMEN OR PELVIS ON CT SCAN WITH IV CONTRAST. Assessment and Plan - Diagnosis (1) Polypharmacy Is this a current diagnosis for this admission?: Yes Plan: Mental health consult May 14 recommended titration from Wellbutrin, Zoloft, Ambien. Unclear of her current regiment I will continue Zoloft at 50 mg/day. (2) Acidosis Is this a current diagnosis for this admission?: Yes Plan: Secondary to dehydration and poor p.o. intake. Hydration and follow-up c hemistry (3) Depression with anxiety Is this a current diagnosis for this admission?: Yes Plan: Zoloft 50, Adderall 10 twice daily, follow-up outpatient mental health at [facility] (4) Acute renal injury Is this a current diagnosis for this admission?: Yes Plan: IV fluid challenge, avoid nephrotoxic meds and doses follow-up chemistry - Time Time Spent with patient: 25-34 minutes - Inpatient Certification Medical Necessity: Need Close Monitoring Due to Risk of Patient Decompensation
[2019-05-22] MEDS: NORMAL SALINE 1000 ML 1,000 ML IV PRN ×2 (05:06→09:23)
[2019-05-22] MEDS: HEPARIN SOD (PORCINE) 5,000 UNIT/ML 1 ML VIAL SUBCUT SCH (05:13)
[2019-05-22 05:22] LABS: ABSOLUTE LYMPHOCYTES (AUTO) 1.1 10^3/uL (0.5-4.7); ABSOLUTE MONOCYTES (AUTO) 0.6 10^3/uL (0.1-1.4); BASOPHILS % (AUTO) 0.2 % (0-2); EOSINOPHILS % (AUTO) 0.2 % (0-6); HEMATOCRIT 37.3 % (36.0-47.0); LYMPHOCYTES % (AUTO) 16.6 % (13-45); MEAN CORPUSCULAR HEMOGLOBIN 27.5 pg (27.0-33.4); MEAN CORPUSCULAR HGB CONC 33.9 g/dL (32.0-36.0); MEAN CORPUSCULAR VOLUME 81 fl (80-97); MONOCYTES % (AUTO) 8.7 % (3-13); PLATELET COUNT 155 10^3/uL (150-450); RED BLOOD COUNT 4.58 10^6/uL (3.72-5.28); RED CELL DISTRIBUTION WIDTH 13.9 % (11.5-14.0); SEGMENTED NEUTROPHILS % (AUTO) 74.3 % (42-78); TOTAL CELLS COUNTED % (AUTO) 100 %; WHITE BLOOD COUNT 6.7 10^3/uL (4.0-10.5)
[2019-05-22 05:23] LABS: HEMOGLOBIN 12.6 g/dL (12.0-15.5)
[2019-05-22 05:31] LABS: ANION GAP 6 (5-19); BLOOD UREA NITROGEN 15 mg/dL (7-20); CALCIUM 8.4 mg/dL (8.4-10.2); CARBON DIOXIDE 22 mmol/L (22-30); CHLORIDE 113 mmol/L (98-107); GLUCOSE 84 mg/dL (75-110); POTASSIUM 3.9 mmol/L (3.6-5.0)
[2019-05-22 09:02] VITALS: BP 97/58
[2019-05-22] MEDS ORDERED: (PENDING PHARMACY ID) (Bupropion Hcl [Wellbutrin Xl 150 Mg 24hr Tablet] 150 MG) PO SCH (10:00)
[2019-05-22] MEDS ORDERED: DOCUSATE SODIUM 100 MG CAPSULE PO SCH (10:00)
[2019-05-22] MEDS ORDERED: SERTRALINE HCL 50 MG TABLET PO SCH (10:00)
[2019-05-22] MEDS ORDERED: LACTULOSE SYRUP 20 GM/30 ML UDCUP PO SCH (10:00)
--- NOTE | 2019-05-22 11:26 | PDOC DISCHARGE SUMMARY ---
General - Admit/Disc Date/PCP Admission Date/Primary Care Provider: 05/21/19 19:47 ARMANI RIVERA, DO Discharge Date: 05/22/19 - Additional Information Resuscitation Status: Full Code Discharge Diet: As Tolerated Discharge Activity: Activity As Tolerated Home Medications: Bupropion HCl [Wellbutrin Xl 150 mg 24hr Tablet] 150 mg PO DAILY 05/14/19 Dextroamphetamine/Amphetamine [Adderall 10 mg Tablet] 10 mg PO BID 05/14/19 Dextroamphetamine/Amphetamine [Adderall XR 20 mg Capsule] 40 mg PO QAM 05/14/19 Pregabalin [Lyrica 100 mg Capsule] 100 mg PO Q8 05/14/19 Sertraline HCl [Zoloft] 250 mg PO DAILY 05/14/19 Tolterodine Tartrate [Detrol LA] 4 mg PO BID 05/14/19 Zolpidem Tartrate [Ambien] 10 mg PO QHS 05/14/19 Ascorbic Acid [Vitamin C 500 mg Tablet] 500 mg PO DAILY 05/21/19 Multivitamin [Daily Multiple Vitamin] 1 each PO DAILY 05/21/19 History of Present Illness History of Present Illness: PETER PINK is a 69 year old female with a past medical history of anxiety, depression, hypertension and polypharmacy. She presents with generalized weakness and a fuzzy feeling persisting for 10 days. She was observed 8 days ago for the same with recommendations to titrate off Wellbutrin, Adderall, Robaxin, Lyrica and Zoloft Zoloft with mental health follow-up. In the emergency room she describes vague complaints denies focal pain fever shortness of breath or chest pain. She is found to have acute renal failure with a creatinine of 1.6 and a lactic acid of 2.7 without hypotension. She is referred to the hospitalist for observation. Patient is a very anxious and subsequently poor historian she is unable to recall her current medications exactly. She denies homicidal or suicidal ideation. Hospital Course Hospital Course: (1) Polypharmacy Should follow-up with his PCP and psychiatry outpatient (2) Acidosis Secondary to dehydration and poor p.o. intake. Improved after hydration. (3) Depression with anxiety Continue her home meds, follow-up outpatient mental health at [facility] (4) Acute renal injury Improved after IV fluids. DC lisinopril. Blood pressure is actually on the lower side. Physical Exam Vital Signs: Temp Pulse Resp BP Pulse Ox 97.7 F 63 16 97/58 L 100 05/22/19 07:40 05/22/19 07:40 05/22/19 07:40 05/22/19 07:40 05/22/19 07:40 Intake & Output 05/21/19 05/22/19 05/23/19 06:59 06:59 06:59 Intake Total 3260 1000 Output Total 400 Balance 2860 1000 Weight 162 lb 7.691 oz Results Laboratory Results: 05/22/19 04:46 05/22/19 04:46 05/21/19 05/21/19 05/21/19 15:21 15:21 15:21 WBC 12.5 H RBC 5.56 H Hgb 15.1 Hct 45.1 MCV 81 MCH 27.2 MCHC 33.5 RDW 14.0 Plt Count 271 Seg Neutrophils % 82.1 H VBG pH VBG pCO2 VBG HCO3 VBG Base Excess Sodium 139.0 Potassium 4.8 Chloride 104 Carbon Dioxide 21 L Anion Gap 14 BUN 21 H Creatinine 1.63 H Est GFR ( Amer) 38 L Glucose 107 Lactic Acid 2.7 H Calcium 10.2 Total Bilirubin 0.5 AST 32 Alkaline Phosphatase 108 Total Protein 6.5 Albumin 4.1 Lipase 154.9 TSH Urine Color Urine Appearance Urine pH Ur Specific [place] Urine Protein Urine Glucose (UA) Urine Ketones Urine Blood Urine Nitrite Ur Leukocyte Esterase Urine WBC (Auto) Urine RBC (Auto) 05/21/19 05/21/19 05/21/19 15:21 15:21 18:56 WBC RBC Hgb Hct MCV MCH MCHC RDW Plt Count Seg Neutrophils % VBG pH 7.63 H VBG pCO2 20.6 L VBG HCO3 21.3 VBG Base Excess 2.8 Sodium Potassium Chloride Carbon Dioxide Anion Gap BUN Creatinine Est GFR ( Amer) Glucose Lactic Acid Calcium Total Bilirubin AST Alkaline Phosphatase Total Protein Albumin Lipase TSH 2.58 Urine Color YELLOW Urine Appearance CLEAR Urine pH 9.0 Ur Specific [place] 1.031 Urine Protein NEGATIVE Urine Glucose (UA) NEGATIVE Urine Ketones TRACE H Urine Blood NEGATIVE Urine Nitrite NEGATIVE Ur Leukocyte Esterase NEGATIVE Urine WBC (Auto) 1 Urine RBC (Auto) 1 05/21/19 05/22/19 05/22/19 19:54 04:46 04:46 WBC 6.7 RBC 4.58 Hgb 12.6 D Hct 37.3 MCV 81 MCH 27.5 MCHC 33.9 RDW 13.9 Plt Count 155 Seg Neutrophils % 74.3 VBG pH VBG pCO2 VBG HCO3 VBG Base Excess Sodium 140.9 Potassium 3.9 Chloride 113 H Carbon Dioxide 22 Anion Gap 6 BUN 15 Creatinine 1.02 Est GFR ( Amer) > 60 Glucose 84 Lactic Acid 1.3 Calcium 8.4 Total Bilirubin AST Alkaline Phosphatase Total Protein Albumin Lipase TSH Urine Color Urine Appearance Urine pH Ur Specific [place] Urine Protein Urine Glucose (UA) Urine Ketones Urine Blood Urine Nitrite Ur Leukocyte Esterase Urine WBC (Auto) Urine RBC (Auto) 05/21/19 15:21 Troponin I < 0.012 NT-Pro-B Natriuret Pep 276 Impressions: Chest/Abdomen CTA 05/21/19 15:45 IMPRESSION: There is no aortic aneurysm or dissection. There are no pulmonary emboli. Abdomen/Pelvis CT 05/21/19 16:56 IMPRESSION: NO SIGNIFICANT OR ACUTE FINDING IN THE ABDOMEN OR PELVIS ON CT SCAN WITH IV CONTRAST. Qualifiers - * PATIENT BEING DISCHARGED WITH ANY OF THE FOLLOWING DIAGNOSIS: No Acute Heart Failure - Is this a Heart Failure Patient?: No
== END 2019-05-22 15:08 | disposition home or self-care (01) ==
LOC: ER 14:32 → EH 19:47 → 4N 23:09
PROVIDERS: ADMIT Internal Medicine; ATTEND Internal Medicine
DX: N17.9 Acute kidney failure, unspecified (principal); E87.2 Acidosis; F41.8 Other specified anxiety disorders; E86.0 Dehydration; R53.1 Weakness; F90.9 Attention-deficit hyperactivity disorder, unspecified type; K59.00 Constipation, unspecified; R30.0 Dysuria; R06.82 Tachypnea, not elsewhere classified; R60.0 Localized edema; M13.862 Other specified arthritis, left knee; Z79.899 Other long term (current) drug therapy; Z90.49 Acquired absence of other specified parts of digestive tract; Z98.84 Bariatric surgery status; Z82.49 Family history of ischemic heart disease and other diseases of the circulatory system; Z95.828 Presence of other vascular implants and grafts; Z87.440 Personal history of urinary (tract) infections; Z86.718 Personal history of other venous thrombosis and embolism
CPT/HCPCS: 93005; 99285; 96361; 96374; 36415 ×2; 87040; 87086; 83690; 84443; 85025 ×2; 80048; 80053; 81001; 84484; 80307; 82803; 83605; 83880; 71275; 74177; 93010; G0378 ×3; A9270 ×5; J2060; J7030 ×2; J7040

== ENCOUNTER 2019-10-15 09:51 | Emergency (ER) | payer MEDICARE, OTHER ==
--- NOTE | 2019-10-15 10:46 | ER Document Report ---
ED Medical Screen (RME) - General Chief Complaint: Diarrhea Stated Complaint: ANXIETY Time Seen by Provider: 10/15/19 10:10 Primary Care Provider: ARMANI RIVERA DO [Primary Care Provider] - Follow up as needed Mode of Arrival: Wheelchair Information source: Patient, Emergency Med Personnel Notes: Patient is a 69-year-old female presenting to the emergency department chief complaint of anxiety. Patient reports she has had diarrhea for several months, she states that she lost her and her son approximately 3 years ago. She states since that time she has not done any housekeeping, she states there is rotten food all over her house. She further states that she has had multiple episodes of diarrhea in which she has not made it to the toilet. She states that her house is in demise. She states that she cannot live like this anymore. She does deny any suicidal or homicidal ideations. She does state that she does not want to "be here anymore". But she denies that she has any intention of self-harm. She has a very flat affect. I have greeted and performed a rapid initial assessment of this patient. A comprehensive ED assessment and evaluation of the patient, analysis of test results and completion of the medical decision making process will be conducted by additional ED providers. I have specifically instructed the patient or family members with the patient to immediately return to any nursing staff should anything change in the patient's condition or with their chief complaint. TRAVEL OUTSIDE OF THE [place] IN LAST 30 DAYS: No - Related Data Allergies/Adverse Reactions: oxycodone [From Percodan] Allergy (Verified 10/15/19 10:26) propoxyphene [From Darvon] Allergy (Verified 10/15/19 10:26) smallpox vaccine,live Allergy (Verified 10/15/19 10:26) Sulfa (Sulfonamide Antibiotics) Allergy (Verified 10/15/19 10:26) Home Medications: ambien, HCTZ, lisinopril, xeralto (r/t blood clot) Past Medical History - Social History Chew tobacco use (# tins/day): No Frequency of alcohol use: None Drug Abuse: None - Past Medical History Cardiac Medical History: Reports: Hx Hypertension Denies: Hx Coronary Artery Disease, Hx Heart Attack Pulmonary Medical History: Denies: Hx Asthma, Hx COPD Neurological Medical History: Denies: Hx Seizures Endocrine Medical History: Denies: Hx Diabetes Mellitus Type 1, Hx Diabetes Mellitus Type 2, Hx Hyperthyroidism, Hx Hypothyroidism Renal/ Medical History: Denies: Hx End Stage Renal Disease, Hx Peritoneal Dialysis GI Medical History: Denies: Hx Cirrhosis, Hx Crohn's Disease, Hx Hepatitis, Hx Ulcerative Colitis Musculoskeltal Medical History: Reports Hx Arthritis - Left knee, Denies Hx Gout Skin Medical History: Denies Hx Eczema, Denies Hx Psoriasis Psychiatric Medical History: Reports: Hx Attention Deficit Hyperactivity Disorder, Hx Depression Infectious Medical History: Denies: Hx Hepatitis Past Surgical History: Reports: Hx Abdominal Surgery - bariatic, Hx Appendectomy, Hx Gastric Bypass Surgery, Hx Vascular Surgery - Inferior vena cava filter, Other - Ectopic surgery, ovarian cystectomy, oophorectomy, bladder tack. Physical Exam - Vital signs Vitals: Temp Pulse Resp BP Pulse Ox 97.8 F 71 16 147/107 H 100 10/15/19 09:59 10/15/19 09:59 10/15/19 09:59 10/15/19 09:59 10/15/19 09:59 Course - Vital Signs Vital signs: Temp Pulse Resp BP Pulse Ox 97.8 F 71 16 147/107 H 100 10/15/19 09:59 10/15/19 09:59 10/15/19 09:59 10/15/19 09:59 10/15/19 09:59 Doctor's Discharge - Discharge Referrals: ARMANI RIVERA DO [Primary Care Provider] - Follow up as needed
[2019-10-15 11:23] LABS: ABSOLUTE LYMPHOCYTES (AUTO) 0.8 10^3/uL (0.5-4.7); ABSOLUTE MONOCYTES (AUTO) 0.3 10^3/uL (0.1-1.4); ABSOLUTE NEUT (AUTO) 3.6 10^3/uL (1.7-8.2); BASOPHILS % (AUTO) 0.3 % (0-2); EOSINOPHILS % (AUTO) 0.3 % (0-6); HEMATOCRIT 43.3 % (36.0-47.0); HEMOGLOBIN 14.8 g/dL (12.0-15.5); LYMPHOCYTES % (AUTO) 16.7 % (13-45); MEAN CORPUSCULAR HGB CONC 34.1 g/dL (32.0-36.0); MEAN CORPUSCULAR VOLUME 79 fl (80-97); MONOCYTES % (AUTO) 6.2 % (3-13); PLATELET COUNT 160 10^3/uL (150-450); RED BLOOD COUNT 5.48 10^6/uL (3.72-5.28); RED CELL DISTRIBUTION WIDTH 15.7 % (11.5-14.0); SEGMENTED NEUTROPHILS % (AUTO) 76.5 % (42-78); TOTAL CELLS COUNTED % (AUTO) 100 %; WHITE BLOOD COUNT 4.8 10^3/uL (4.0-10.5)
[2019-10-15 11:44] LABS: ALBUMIN 3.9 g/dL (3.5-5.0); ALKALINE PHOSPHATASE 122 U/L (38-126); ANION GAP 8 (5-19); ASPARTATE AMINO TRANSFERASE 22 U/L (14-36); BILIRUBIN,DIRECT 0.2 mg/dL (0.0-0.4); BILIRUBIN,TOTAL 0.4 mg/dL (0.2-1.3); BLOOD UREA NITROGEN 11 mg/dL (7-20); CALCIUM 9.2 mg/dL (8.4-10.2); CARBON DIOXIDE 28 mmol/L (22-30); CHLORIDE 107 mmol/L (98-107); GLUCOSE 96 mg/dL (75-110); POTASSIUM 4.6 mmol/L (3.6-5.0); TOTAL PROTEIN 6.7 g/dL (6.3-8.2)
[2019-10-15] MEDS ORDERED: NORMAL SALINE 1000 ML 1,000 ML IV ONE (12:12)
--- NOTE | 2019-10-15 12:44 | ER Document Report ---
ED GI/ - General Chief Complaint: Diarrhea Stated Complaint: ANXIETY Time Seen by Provider: 10/15/19 10:10 Primary Care Provider: ARMANI RIVERA DO [Primary Care Provider] - Follow up as needed Mode of Arrival: Wheelchair Notes: HPI: 69-year-old female who presents with multiple complaints. She states last week she has some runny nose, congestion, and cough. She states she took Mucine x. This improved the patient's symptoms. She states she has felt a little lightheaded and dizziness with the persistence of the nasal congestion. She started to have diarrhea she states over the last few days. She states 3 times today. No vomiting. She has had some nausea. She also complains of some left ear pain. She denies any chest or headache. She denies any weakness or numbness. She denies fevers or dysuria. ROS: See HPI All other review of systems reviewed and otherwise negative Reviewed vital signs and nursing note as charted by RN. PHYSICAL EXAM: CONSTITUTIONAL: Alert and oriented and responds appropriately to questions. Well-appearing; well-nourished HEAD: Normocephalic; atraumatic EYES: PERRL; sclerae non-icteric ENT: Normal nose; no rhinorrhea; moist mucous membranes; pharynx without lesions noted NECK: Supple without meningismus; non-tender; no cervical lymphadenopathy, no masses CARD: Regular rate and rhythm; no murmurs; symmetric distal pulses RESP: Normal chest excursion without splinting or tachypnea; breath sounds clear and equal bilaterally; no wheezes, no rhonchi, no rales ABD/GI: Normal bowel sounds; non-distended; soft, non-tender to deep palpation of all 4 quadrants of the abdomen; no palpable organomegaly or masses BACK: The back appears normal and is non-tender to palpation EXT: Normal ROM in all joints; non-tender to palpation; no edema SKIN: No acute lesions noted NEURO: CN 2-12 intact; 5/5 bilateral upper and lower extremity strength with sensation intact to light touch PSYCH: The patient's mood and manner are appropriate. Grooming and personal hygiene are appropriate. TRAVEL OUTSIDE OF THE [place] IN LAST 30 DAYS: No - Related Data Allergies/Adverse Reactions: oxycodone [From Percodan] Allergy (Verified 10/15/19 10:26) propoxyphene [From Darvon] Allergy (Verified 10/15/19 10:26) smallpox vaccine,live Allergy (Verified 10/15/19 10:26) Sulfa (Sulfonamide Antibiotics) Allergy (Verified 10/15/19 10:26) Home Medications: ambien, HCTZ, lisinopril, xeralto (r/t blood clot) Past Medical History - General Information source: Patient, Emergency Med Personnel - Social History Smoking Status: Never Smoker Chew tobacco use (# tins/day): No Frequency of alcohol use: None Drug Abuse: None Family History: CAD, Hypertension Patient has suicidal ideation: No Patient has homicidal ideation: No - Past Medical History Cardiac Medical History: Reports: Hx Hypertension Denies: Hx Coronary Artery Disease, Hx Heart Attack Pulmonary Medical History: Denies: Hx Asthma, Hx COPD Neurological Medical History: Denies: Hx Seizures Endocrine Medical History: Denies: Hx Diabetes Mellitus Type 1, Hx Diabetes Mellitus Type 2, Hx Hyperthyroidism, Hx Hypothyroidism Renal/ Medical History: Denies: Hx End Stage Renal Disease, Hx Peritoneal Dialysis GI Medical History: Denies: Hx Cirrhosis, Hx Crohn's Disease, Hx Hepatitis, Hx Ulcerative Colitis Musculoskeletal Medical History: Reports Hx Arthritis - Left knee, Denies Hx Gout Skin Medical History: Denies Hx Eczema, Denies Hx Psoriasis Psychiatric Medical History: Reports: Hx Attention Deficit Hyperactivity Disorder, Hx Depression Infectious Medical History: Denies: Hx Hepatitis Past Surgical History: Reports: Hx Abdominal Surgery - bariatic, Hx Appendectomy, Hx Gastric Bypass Surgery, Hx Vascular Surgery - Inferior vena cav a filter, Other - Ectopic surgery, ovarian cystectomy, oophorectomy, bladder tack. - Immunizations Hx Pneumococcal Vaccination: 06/05/14 Physical Exam - Vital signs Vitals: Temp Pulse Resp BP Pulse Ox 97.8 F 71 16 147/107 H 100 10/15/19 09:59 10/15/19 09:59 10/15/19 09:59 10/15/19 09:59 10/15/19 09:59 Course - Re-evaluation Re-evalutation: Given the above history and physical examination, we will order electrolytes, x- ray of the chest, influenza, urine analysis, and reassess. Patient has no focal neurological deficits. She has no headache, chest pain, or abdominal pain. No blood in the stool. No pain with urination. 10/15/19 12:43 Labs initially as recorded. 10/15/19 14:35 Labs, imaging, flu, and x-ray of the chest as recorded. We have provided a liter of fluid as well as Rocephin. Patient currently denies any pain. Vital signs are stable. We have had social work come and talk to the patient regarding her living situation. If they deem this is safe and we can provide outpatient follow-up, patient will be discharged home with strict return precautions and a course of antibiotics. - Vital Signs Vital signs: Temp Pulse Resp BP Pulse Ox 97.8 F 71 16 147/107 H 100 10/15/19 09:59 10/15/19 09:59 10/15/19 09:59 10/15/19 09:59 10/15/19 09:59 - Laboratory Result Diagrams: 10/15/19 11:00 10/15/19 11:00 Laboratory results interpreted by me: 10/15/19 10/15/19 11:00 13:40 RBC 5.48 H MCV 79 L RDW 15.7 H Urine Ketones TRACE H Urine Nitrite POSITIVE H Ur Leukocyte Esterase SMALL H Discharge - Discharge Clinical Impression: Nasal congestion UTI (urinary tract infection) Qualifiers: Urinary tract infection type: site unspecified Hematuria presence: without hematuria Qualified Code(s): N39.0 - Urinary tract infection, site not specified Diarrhea Qualifiers: Diarrhea type: unspecified type Qualified Code(s): R19.7 - Diarrhea, unspecified Condition: Good Disposition: HOME, SELF-CARE Additional Instructions: Come back immediately with any pain, fevers, vomiting, lightheadedness or dizziness, weakness or numbness, or any other acute problems. Please make sure that you follow-up with the primary care physician and take the antibiotics as prescribed. Prescriptions: Cephalexin Monohydrate [Keflex 500 mg Capsule] 500 mg PO Q8H 7 Days #21 capsule Referrals: ARMANI RIVERA, [Primary Care Provider] - Follow up as needed
--- NOTE | 2019-10-15 13:36 | RADIOLOGY REPORT (SQ) ---
EXAM DESCRIPTION: CHEST 2 VIEWS COMPLETED DATE/TIME: 10/15/2019 1:15 pm REASON FOR STUDY: 38; cough COMPARISON: None. EXAM PARAMETERS: NUMBER OF VIEWS: two views TECHNIQUE: Digital Frontal and Lateral radiographic views of the chest acquired. RADIATION DOSE: NA LIMITATIONS: none FINDINGS: LUNGS AND PLEURA: No opacities, masses or pneumothorax. No pleural effusion. MEDIASTINUM AND HILAR STRUCTURES: No masses or contour abnormalities. HEART AND VASCULAR STRUCTURES: Heart normal size. No evidence for failure. BONES: No acute findings. HARDWARE: None in the chest. OTHER: IVC filter to the right of the upper lumbar vertebrae. IMPRESSION: 1. NO ACUTE RADIOGRAPHIC FINDING IN THE CHEST. TECHNICAL DOCUMENTATION: JOB ID: [id number] 2010 [employer]- All Rights Reserved Reading location - IP/workstation name: [email or web address]
[2019-10-15 13:45] LABS: A TYPE INFLUENZA AG NEGATIVE (NEGATIVE); B INFLUENZA AG NEGATIVE (NEGATIVE)
[2019-10-15 13:55] LABS: APPEARANCE,URINE SLIGHTLY-CLOUDY; BILIRUBIN,URINE NEGATIVE (NEGATIVE); COLOR,URINE YELLOW; GLUCOSE, URINE NEGATIVE (NEGATIVE); KETONES,URINE TRACE mg/dL (NEGATIVE); LEUKOCYTE ESTERASE,URINE SMALL (NEGATIVE); NITRITE,URINE POSITIVE (NEGATIVE); PROTEIN,URINE NEGATIVE (NEGATIVE); URINE SPECIFIC GRAVITY 1.013; UROBILINOGEN,URINE NEGATIVE mg/dL (<2.0)
[2019-10-15] MEDS ORDERED: CEFTRIAXONE 1 GM/D5W RTU 1 GM/50 ML RTUPB IV ONE (14:35)
[2019-10-15 16:10] VITALS: BP 181/77
== END 2019-10-15 16:10 | disposition home or self-care (01) ==
LOC: ER 09:51
DX: N39.0 Urinary tract infection, site not specified (principal); R19.7 Diarrhea, unspecified; R09.81 Nasal congestion; F41.9 Anxiety disorder, unspecified; I10 Essential (primary) hypertension; Z88.6 Allergy status to analgesic agent; Z88.2 Allergy status to sulfonamides; Z98.84 Bariatric surgery status
CPT/HCPCS: 36415; 71046; 80053; 81001; 83690; 85025; 87804; 96361; 96365; 99283; J0696; J7030

== ENCOUNTER 2020-09-09 00:42 | Emergency (ER) | payer MEDICARE ==
[2020-09-09 02:28] LABS: ABSOLUTE LYMPHOCYTES (AUTO) 0.9 10^3/uL (0.5-4.7); ABSOLUTE MONOCYTES (AUTO) 1.6 10^3/uL (0.1-1.4); ABSOLUTE NEUT (AUTO) 13.5 10^3/uL (1.7-8.2); EOSINOPHILS % (AUTO) 0.1 % (0-6); TOTAL CELLS COUNTED % (AUTO) 100 %
--- NOTE | 2020-09-09 02:32 | ER Document Report ---
ED Syncope and Near Syncope - General Chief Complaint: Syncope Stated Complaint: SYNCOPE Time Seen by Provider: 09/09/20 01:27 Primary Care Provider: NAJMA CUEVAS MD [Primary Care Provider] - Follow up as needed Mode of Arrival: Medic Information source: Patient Notes: 70-year-old female presented to ED for syncopal episode at home. She states she ate some fish became nauseated and vomited that sick went to the bathroom and then she woke up on the floor. Family found her unconscious in the bathroom. She does complain of pain to the back of her head and neck. She is on Xarelto. She states she is being worked up for syncopal episodes in the past. 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 She states she went to the primary care doctor yesterday and was not having any nausea or vomiting at that time. She is alert oriented answering all questions appropriately at this time. She states she is not nauseated at this time. Constitutional: Negative for fever. HENT: Negative for sore throat. Eyes: Negative for visual changes. Cardiovascular: Negative for chest pain. Respiratory: Negative for shortness of breath. Gastrointestinal: Complains of nausea was and vomiting after eating fish tonight Genitourinary: Negative for dysuria. Musculoskeletal: Planes of head and neck pain. She does have tenderness to the back of her head and her neck. Skin: Negative for rash. Neurological: Syncopal episode at home tonight family found unconscious on the floor unknown how long she was unconscious. She states when family tried to get her up and put her in the bed she did fall again. She was brought to the ED via EMS 10 point ROS negative except as marked above and in HPI. VITAL SIGNS: Within normal limits. GENERAL: No acute distress, non-toxic appearance. HEAD: Normal with no signs of head trauma. EYES: PERRLA, EOMI, conjunctiva normal, no discharge. EARS: Hearing grossly intact. NOSE: Normal. THROAT: Oropharynx is normal. NECK: Normal range of motion, no tenderness, supple, no lymphadenopathy, No adenopathy, no JVD. CHEST: Clear breath sounds bilaterally. No wheezes, rales, or rhonchi. CARDIAC: Regular rate and rhythm. S1 and S2, without murmurs, gallops, or rubs. VASCULAR: No Edema. Peripheral pulses normal and equal in all extremities. ABDOMEN: Normal and soft with no tenderness, no masses or pulsatile masses. GASTROINTESTINAL: Bowel sounds normal GENITOURINARY: Normal, No tenderness LYMPATHTIC: No lymphadenopathy noted. MUSCULOSKELETAL: Good range of motion of all major joints. Extremities without clubbing, cyanosis or edema. NEUROLOGICAL: Alert and oriented x 3. No focal sensory or strength deficits. Speech normal. Follows commands appropriately. PSYCHIATRIC: Normal Affect, judgement and mood. SKIN: Normal appearance with no rashes or lesions. TRAVEL OUTSIDE OF THE [place] IN LAST 30 DAYS: No - HPI Patient complains to provider of: Fainting Episode witnessed (by whom): No - Family found her slumped over at the toilet Symptoms prior to episode: Nausea/vomiting Position/Activity at time of episode: Standing Quality of pain: Achy, Sharp Severity: Moderate Pain Level: 3 Context: Other - Incontinent in the bathroom Injury location: Head, Neck Current symptoms: Headache, Neck pain Similar symptoms previously: Yes Recently seen / treated by doctor: Yes - Related Data Allergies/Adverse Reactions: oxycodone [From Percodan] Allergy (Verified 10/15/19 10:26) propoxyphene [From Darvon] Allergy (Verified 10/15/19 10:26) smallpox vaccine,live Allergy (Verified 10/15/19 10:26) Sulfa (Sulfonamide Antibiotics) Allergy (Verified 10/15/19 10:26) Past Medical History - General Information source: Patient - Social History Smoking Status: Never Smoker Chew tobacco use (# tins/day): No Frequency of alcohol use: None Drug Abuse: None Lives with: Family Family History: CAD, Hypertension Patient has suicidal ideation: No Patient has homicidal ideation: No - Past Medical History Cardiac Medical History: Reports: Hx Hypertension, Other - Multiple syncopal ep isodes Pulmonary Medical History: Reports: None EENT Medical History: Reports: None Neurological Medical History: Reports: None Endocrine Medical History: Denies: Hx Diabetes Mellitus Type 1, Hx Diabetes Mellitus Type 2, Hx Hyperthyroidism, Hx Hypothyroidism Renal/ Medical History: Denies: Hx End Stage Renal Disease, Hx Peritoneal Dialysis GI Medical History: Denies: Hx Cirrhosis, Hx Crohn's Disease, Hx Hepatitis, Hx Ulcerative Colitis Musculoskeletal Medical History: Reports Hx Arthritis - Left knee, Denies Hx Gout Skin Medical History: Denies Hx Eczema, Denies Hx Psoriasis Psychiatric Medical History: Reports: Hx Attention Deficit Hyperactivity Disorder, Hx Depression Infectious Medical History: Denies: Hx Hepatitis Past Surgical History: Reports: Hx Abdominal Surgery - bariatic, Hx Appendectomy, Hx Gastric Bypass Surgery, Hx Vascular Surgery - Inferior vena cava filter, Other - Ectopic surgery, ovarian cystectomy, oophorectomy, bladder tack. - Immunizations Hx Pneumococcal Vaccination: 06/05/14 Physical Exam - Vital signs Vitals: Temp 98.2 F 09/09/20 00:42 Course - Re-evaluation Re-evalutation: 09/09/20 08:[address] Gutierrez concerning the troponin of 0.078 with a second troponin is 0.076 she stated is not having any chest pain at all. He stated from she was not having chest pain but it was okay to discharge her. I then spoke with Dr. Lebron gave him report on her chemistry and her troponins. As well as her CBC. He stated that his office would be calling the patient and her family today. I also told him that her CT of the head and neck were negative for any acute changes. Then while I was typing of the discharge the son called and I did speak with him and told him the results of the CT of the head and neck as well as the discharge plans and that Dr. Cuevas's office would be calling her today. He verbalized he would be on his way to come and pick her up and she will be discharged. - Vital Signs Vital signs: Temp Pulse Resp BP Pulse Ox 98.2 F 13 116/74 96 09/09/20 00:42 09/09/20 07:00 09/09/20 07:00 09/09/20 07:00 - Laboratory Results Result Diagrams: 09/09/20 01:22 09/09/20 01:22 Laboratory Results Interpreted: 09/09/20 09/09/20 01:22 01:22 WBC 16.0 H RBC 5.61 H RDW 14.8 H Lymph % (Auto) 5.5 L Absolute Neuts (auto) 13.5 H Absolute Monos (auto) 1.6 H Seg Neutrophils % 84.4 H BUN 21 H Est GFR ( Amer) 52 L Est GFR (MDRD) Non-Af 43 L Glucose 197 H Direct Bilirubin 0.5 H AST 42 H ALT 50 H Alkaline Phosphatase 312 H Critical Laboratory Results Reviewed: No Critical Results - Radiology Results Critical Radiology Results Reviewed: No Critical Results Discharge - Discharge Clinical Impression: Neck pain Syncopal episodes Qualifiers: Syncope type: unspecified Qualified Code(s): R55 - Syncope and collapse Head injury Qualifiers: Encounter type: initial encounter Qualified Code(s): S09.90XA - Unspecified injury of head, initial encounter Condition: Stable Disposition: HOME, SELF-CARE Additional Instructions: Syncopal Episode Syncope (fainting or near-fainting) can occur from many different health problems. Or it can be a simple fainting spell requiring no treatment. It is safe for you to go home, but further evaluation will likely be necessary. Your work-up may include tests for internal bleeding, heart disease, medication problems, or near-strokes. Tests are not always required, however, depending on the nature of your problem. The warning signs of an impending faint include: dizziness, lightheadedness, nausea, hot flashes, tingling, and weakness. If this happens, lay down and put your feet up, then wait until all of these symptoms have passed before standing up again. If these episodes become recurrent, or if you develop chest pain, heart palpitations, mental confusion, blurred vision, or headache, then you should call the physician, or go to the emergency room. You state you have had multiple episodes of these syncopal episodes and you have been followed up by a labourers and have been having a syncopal work-up by your primary care doctor. You did have an elevated troponin today of 0.078 the first time and 0.076 the second time. I have spoken with Dr. Solano and he stated his office will be calling you today. I did speak with the labourers on-call and he stated that these levels were okay to be discharged. VOMITING: Vomiting (or nausea without vomiting) can be caused by many other different problems. It can mean that something's wrong with the stomach, such as ulcers or inflammation or the intestinal tract, such as appendicitis. But it can also be a symptom of a problem that has nothing to do with the stomach or intestines. Vomiting is common with severe headaches, earaches, tonsillitis, and kidney inf ections, etc. We see it with pneumonia or heart attacks. Drugs can cause nausea and vomiting. Many abdominal problems cause vomiting; for example, gallstones, kidney stones, pancreatitis, and intestinal obstruction (blocked bowels). In most cases, curing the vomiting depends on fixing the problem that caused it. For temporary relief, we may use an anti-nausea medicine. For home use, we can prescribe suppositories, chewable pills, pills that dissolve in the mouth, or liquid anti-nausea drugs. If the vomiting seems to be caused by a problem in the stomach, acid-suppressing drugs may be prescribed as well. It's important to avoid dehydration. Sip small amounts of clear liquids (soft drinks, tea, broth, etc) . Try to take fluids frequently even if you are vomiting to prevent dehydration. Take increasing amounts of fluid and when liquids are being consumed successfully, advance to small amounts of bland food (toast, soups, mashed potatoes, etc.) until you are able to resume a regular diet. Avoid aspirin, tobacco, and alcohol. If the vomiting worsens, if the problem that's making you vomit worsens, or if there's evidence of bleeding in the stomach (such as black, tarry stool, or bloody or black vomit), you should return immediately. Also, return if abdominal pain worsens or becomes localized to one area or you develop high fever. Call your doctor if you aren't improved in 24 hours. ANTINAUSEA MEDICATION: You have been given a medication to suppress nausea and vomiting. This type of medication can be given as a shot, pill, or suppository. It will usually last for many hours. Pills and shots usually last six to eight hours. For the typical illness, only one or two doses of the medication may be necessary. Mild lightheadedness may occur. This type of medicine can cause drowsiness. Do not drive or operate dangerous machinery while under its inf luence. Do not mix with alcohol. See your doctor at once if you have muscle spasms or tightness, or uncontrollable motions (particularly of the neck, mouth, or jaw). Persistent vomiting or severe lightheadedness should also be evaluated by the physician. FOLLOW-UP CARE: If you have been referred to a physician for follow-up care, call the physicians office for an appointment as you were instructed or within the next two days. If you experience worsening or a significant change in your symptoms, notify the physician immediately or return to the Emergency Department at any time for re-evaluation. Prescriptions: Ondansetron [Zofran Odt 4 mg Tablet] 1 tab PO Q6H #15 tab.rapdis Referrals: NAJMA CUEVAS MD [Primary Care Provider] - Follow up as needed
[2020-09-09 02:37] LABS: BASOPHILS % (AUTO) 0.1 % (0-2); HEMATOCRIT 46.5 % (36.0-47.0); HEMOGLOBIN 15.1 g/dL (12.0-15.5); LYMPHOCYTES % (AUTO) 5.5 % (13-45); MEAN CORPUSCULAR HGB CONC 32.5 g/dL (32.0-36.0); MEAN CORPUSCULAR VOLUME 83 fl (80-97); MONOCYTES % (AUTO) 9.9 % (3-13); PLATELET COUNT 161 10^3/uL (150-450); RED BLOOD COUNT 5.61 10^6/uL (3.72-5.28); RED CELL DISTRIBUTION WIDTH 14.8 % (11.5-14.0); SEGMENTED NEUTROPHILS % (AUTO) 84.4 % (42-78)
[2020-09-09 02:38] LABS: ALBUMIN 4.2 g/dL (3.5-5.0); ALKALINE PHOSPHATASE 312 U/L (38-126); ANION GAP 13 (5-19); ASPARTATE AMINO TRANSFERASE 42 U/L (14-36); BILIRUBIN,DIRECT 0.5 mg/dL (0.0-0.4); BILIRUBIN,TOTAL 0.7 mg/dL (0.2-1.3); BLOOD UREA NITROGEN 21 mg/dL (7-20); CALCIUM 9.7 mg/dL (8.4-10.2); CARBON DIOXIDE 23 mmol/L (22-30); CHLORIDE 104 mmol/L (98-107); CREATINE KINASE 126 U/L (30-135); GLUCOSE 197 mg/dL (75-110); POTASSIUM 4.2 mmol/L (3.6-5.0); TOTAL PROTEIN 6.8 g/dL (6.3-8.2)
[2020-09-09 02:50] LABS: CREATINE KINASE MB 1.58 ng/mL (<4.55)
[2020-09-09 02:54] LABS: TROPONIN I 0.078 ng/mL
--- NOTE | 2020-09-09 05:22 | RADIOLOGY REPORT (SQ) ---
EXAM DESCRIPTION: CT HEAD WITHOUT IV CONTRAST COMPLETED DATE/TME: 09/09/2020 04:16 CLINICAL HISTORY: 70 years, Female, Syncope on Xarelto head pain COMPARISON: 05/13/2019 CT TECHNIQUE: 187 Images stored on PACS. All CT scanners at this facility use dose modulation, iterative reconstruction, and/or weight based dosing when appropriate to reduce radiation dose to as low as reasonably achievable (ALARA). [facility]: Dose Right [facility]: CareDose [facility]: Dose Right [facility]: Teradose 4D [facility]: [employer] LIMITATIONS: None. FINDINGS: The globes are intact. The paranasal sinuses and mastoid air cells are well aerated. No displaced or depressed skull fracture. No acute intracranial hemorrhage. CT is limited for evaluation of acute infarct. No CT evidence for large or territorial acute infarct. No mass or midline shift. IMPRESSION: No acute intracranial abnormality TECHNICAL DOCUMENTATION: Quality ID # [id number]: Final reports with documentation of one or more dose reduction techniques (e.g., Automated exposure control, adjustment of the mA and/or kV according to patient size, use of iterative reconstruction technique) copyright 2011 [employer]- All Rights Reserved
--- NOTE | 2020-09-09 05:24 | RADIOLOGY REPORT (SQ) ---
CT CERVICAL SPINE: 09/09/2020 4:21 AM DISC PAD GRINDER TECHNIQUE: Axial contiguous images were obtained through the cervical spine without intravenous contrast. Sagittal and coronal reconstructions were also reviewed. This exam was performed according to our departmental dose-optimization program, which includes automated exposure control, adjustment of the mA and/or KV according to the patient's size and/or use of iterative reconstruction technique. COMPARISON: None available INDICATION: 70-year old patient with neck pain . FINDINGS: The vertebral bodies appear well aligned. The vertebral body heights appear well maintained. No significant pre-vertebral soft tissue swelling is noted. No definite fracture or subluxation is noted. Moderate multilevel intervertebral disc space narrowing is seen. There are disc osteophyte seen at C3/C4 and C4/C5. Multilevel anterior osteophytes are seen at the cervical spine. There is multilevel moderate facet hypertrophy present this likely contributes to at least mild neural foraminal narrowing. The visualized brain parenchyma appears unremarkable. The craniocervical junction is unremarkable. IMPRESSION: There are no findings to suggest an acute fracture or subluxation within the cervical spine. Multilevel degenerative changes are seen at the cervical spine.
[2020-09-09 07:48] VITALS: BP 116/74
--- NOTE | 2020-09-10 00:43 | EKG REPORT ---
SEVERITY:- ABNORMAL ECG - SINUS RHYTHM LAD, CONSIDER LEFT ANTERIOR FASCICULAR BLOCK : Confirmed by: Helio Clark 10-Sep-2020 00:43:04
== END 2020-09-09 09:20 | disposition home or self-care (01) ==
LOC: ER 00:42
DX: S09.90XA Unspecified injury of head, initial encounter (principal); M54.2 Cervicalgia; X58.XXXA Exposure to other specified factors, initial encounter; R55 Syncope and collapse; R11.2 Nausea with vomiting, unspecified; I10 Essential (primary) hypertension; Z95.1 Presence of aortocoronary bypass graft; Z88.6 Allergy status to analgesic agent; Z88.2 Allergy status to sulfonamides; Z79.01 Long term (current) use of anticoagulants
CPT/HCPCS: 36415; 70450; 72125; 80053; 82550; 82553; 84484; 85025; 93005; 93010; 99285